=== PATIENT | female | born 1930 | race Caucasian/White ===

== ENCOUNTER 2016-12-13 11:13 | Emergency (ER) | payer OTHER ==
[~2016-12-13] VITALS: Ht 152.4 cm; Wt 61.0 kg
[~2016-12-13 11:13] MED LIST: ASCA500 PO; CALCTAB5 PO; CHOL100010 PO; DOCU-94 PO; ESCI1TAB6 PO; LPR25 PO; METF500T PO; MULT-884 PO; POLY335025 PO; SIMVASTATIN PO
[2016-12-13 11:24] VITALS: TEMP 37; Ht 152.4 cm; Wt 61.0 kg
--- NOTE | 2016-12-13 11:54 | EMERGENCY ROOM VISIT NOTE ---
History Report prepared by Valerieibyunior: James Castro Under the Supervision of: Dr. Baljit Amos D.O. First contact with patient: 11:27 Chief Complaint: FALL Stated Complaint: FALL History of Present Illness The patient is a 86 year old female who presents to the Emergency Room with complaints of persistent frontal, upper dental pain starting a few minutes ago. She tripped while walking into [employer]. The patient denies losing consciousness. She reports hitting her nose. She has an abrasion over the bridge of nose. As per friend, she also had a nose bleed. The patient denies neck pain, abdominal pain, hip pain, pain in lower extremities, or any other complaints. She denies any blood thinners. Source of History: patient, friend Onset: a few minutes ago Position: teeth (frontal, upper) Timing: other (persistent) Associated Symptoms: No LOC, No abdominal pain, No neck pain Review of Systems See HPI for pertinent positives & negatives. A total of 10 systems reviewed and were otherwise negative. Past Medical & Surgical Medical Problems: (1) Aortic stenosis (2) Depression (3) Diabetes mellitus type II, controlled (4) Dyslipidemia (5) HTN (hypertension) Surgical Problems: (1) H/O cataract removal with insertion of prosthetic lens Family History Not pertinent due to patient age Social History Smoking Status: Never Smoker Drug Use: none Marital Status: Housing Status: lives with family Occupation Status: retired Current/Historical Medications Scheduled Ascorbic Acid (Vitamin C), 500 MG PO DAILY Docusate Sodium (Colace), 1 CAP PO DAILY Ergocalciferol (Vitamin D 27083 Unit), 1 CAP PO WK Escitalopram Oxalate (Lexapro), 5 MG PO DAILY Metformin Hcl (Glucophage), 500 MG PO DAILY Metoprolol Tartrate (Lopressor), 25 MG PO BID Multiple Vitamin (Multi Vitamin Daily), 1 TAB PO DAILY [Simvastatin], 10 MG PO HS Scheduled PRN Polyethylene Glycol 3350 (Miralax), 17 GM PO DAILY PRN for Constipation Miscellaneous Medications Calcium Carbonate (Caltrate 600) Allergies Coded Allergies: No Known Allergies (Unverified , 12/13/16) Physical Exam Vital Signs Date Time Temp Pulse Resp B/P Pulse Ox O2 Delivery O2 Flow Rate FiO2 12/13/16 12:54 68 20 157/53 100 12/13/16 11:24 37.0 74 20 172/67 96 Room Air Physical Exam GENERAL: Patient is awake, alert, and in no acute distress. Patient is resting comfortably and showing no signs of anxiety EYES: The conjunctivae are clear. The pupils are round and reactive. EARS, NOSE, MOUTH AND THROAT: Mucous membranes are moist tongue is midline. Swelling over the bridge of the nose, clotted blood in both nares but no active bleeding. Hematoma noted in the inner upper lip. Tenderness over the maxilla with palpation. No dental trauma or malocclusion noted. NECK: The neck is nontender and supple. RESPIRATORY: Normal respiratory effort is noted there is no evidence of wheezing rhonchi or rales CARDIOVASCULAR: Regular rate and rhythm noted there no murmurs rubs or gallops normal S1 normal S2 GASTROINTESTINAL: The abdomen is soft. Bowel sounds are present in all quadrants. Abdomen is nontender BACK: No midline tenderness or or step-off noted range of motion in flexion extension as well as rotation no signs of muscle spasm noted MUSCULOSKELETAL/EXTREMITIES: There is no evidence of gross deformity full range of motion is noted in the hips and shoulders SKIN: There is no obvious evidence of any rash. There are no petechiae, pallor or cyanosis noted. Pedal edema bilaterally. NEUROLOGIC: Patient is at baseline according to friend, strength is symmetric, no facial droop appreciated, patellar reflexes are 2+ bilaterally Medical Decision & Procedures ER Provider Diagnostic Interpretation: CT results as stated below per my review and radiologist interpretation. CERVICAL SPINE CT CT DOSE: 1064.10 mGy.cm HISTORY: Trauma fall TECHNIQUE: Multiaxial CT images of the cervical spine were performed and reformatted in the sagittal and coronal plane without the use of contrast. COMPARISON: None. FINDINGS: No fractures. No subluxation. Prevertebral soft tissues and the C1-C2 interval are intact. No pneumothorax. Degenerative change throughout the entire cervical region. Minimal grade 1 anterolisthesis C2 on C3 thought to be secondary to a degenerative basis involving the posterior elements. IMPRESSION: Degenerative change. No acute bony abnormality. Electronically signed by: Bowen Guerra M.D. 12/13/2016 12:16 PM Dictated Date/Time: 12/13/2016 12:[address] OF THE HEAD WITHOUT CONTRAST CLINICAL HISTORY: Fall. COMPARISON STUDY: Head CT October 25, 2016. TECHNIQUE: Helical axial images of the head were obtained without IV contrast. Automated exposure control was utilized for the study. FINDINGS: No acute intracranial hemorrhage, midline shift or mass effect is present. Ventricular system is stable. There is a cavum of septum pellucidum. White matter hypodensities densities are unchanged and suggest small vessel disease. 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 There are no CT findings to suggest acute dural sinus thrombosis or acute territorial infarct. There is no calvarial fracture. IMPRESSION: 1. No acute intracranial findings. 2. No calvarial fracture. Electronically signed by: Sudeep Silverio M.D. 12/13/2016 12:27 PM Dictated Date/Time: 12/13/2016 12:[address] SCAN OF THE FACIAL BONES WITHOUT IV CONTRAST CLINICAL HISTORY: Fall. Facial injury. COMPARISON STUDY: CT of the brain performed concurrently on 12/13/2016. TECHNIQUE: High-resolution CT scan of the facial bones is performed. Images are reviewed in the axial, sagittal, and coronal planes. IV contrast was not administered for this examination. FINDINGS: The skeletal structures are osteopenic. There is no evidence of facial bone fracture. The bony orbits are intact and the orbital contents are within normal limits noting bilateral ocular lens implants.. The zygomatic arches, nasal bones, and pterygoid plates are preserved. The maxilla and mandible are intact. There are no layering blood products within the paranasal sinuses. Trace mucosal thickening is seen within the right sphenoid sinus and the right frontal sinus. The remaining paranasal sinuses mastoid air cells are clear. The visualized calvarium and upper cervical spine are maintained noting cervical spondylosis. 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 Partially imaged brain parenchyma is within normal limits noting age-related involutional change. There is dense atherosclerotic calcification of the cavernous carotid arteries. IMPRESSION: There is no evidence of facial bone fracture. Electronically signed by: Nilton Hart M.D. 12/13/2016 12:23 PM Dictated Date/Time: 12/13/2016 12:19 PM ED Course 1127: The patient was evaluated in room C02B. A complete history and physical examination were performed. 1235: Upon reevaluation, the patient is resting comfortably. I discussed the results and treatment plan with the patient. She verbalized agreement of the treatment plan. She was discharged home. Medical Decision Prior records/ancillary studies reviewed. Triage Nursing notes reviewed. Additional history obtained from friend. The patient's history was concerning for traumatic injury Differential diagnosis: Etiologies such as fracture, dislocation, intra-abdominal, pneumothorax, intrathoracic , intracranial, neurologic, as well as other traumatic pathologies were entertained. The patient is an 86-year-old female who presented to the emergency department after a fall. She presented with a friend who states that she had a fall where she tripped walking into a store. She had mostly facial injury. CT the head and neck as well as the facial bones did not show any acute bony abnormality or intracranial hemorrhage. The patient did have a significant contusion over the nose. The patient had epistaxis reported by the friend but this resolved spontaneously. She was encouraged to continue using Tylenol and Motrin for pain. She was also encouraged to continue using ice to the face. She had some dental pain but had no loose teeth on exam. She was encouraged to follow-up with her primary care physician this week for reevaluation but return to the emergency department immediately if symptoms change worsen or the need arises. Impression Primary Impression: Fall Additional Impression: Facial contusion Scribe Attestation The scribe's documentation has been prepared under my direction and personally reviewed by me in its entirety. I confirm that the note above accurately reflects all work, treatment, procedures, and medical decision making performed by me. Departure Information Dispostion Home / Self-Care Referrals Francesca Geiger D.O. (PCP) Forms HOME CARE DOCUMENTATION FORM, IMPORTANT VISIT INFORMATION Patient Instructions ED Nosebleed, My [facility] Additional Instructions Continue all medications as prescribed. Continue using Tylenol as directed for pain. Rest and avoid any strenuous activity. Follow-up with your family doctor soon as possible. Return to the emergency department immediately if symptoms change worsen or if the need arises. Problem Qualifiers
--- NOTE | 2016-12-13 12:18 | DIAGNOSTIC IMAGING REPORT ---
CERVICAL SPINE CT CT DOSE: 1064.10 mGy.cm HISTORY: Trauma fall TECHNIQUE: Multiaxial CT images of the cervical spine were performed and reformatted in the sagittal and coronal plane without the use of contrast. COMPARISON: None. FINDINGS: No fractures. No subluxation. Prevertebral soft tissues and the C1-C2 interval are intact. No pneumothorax. Degenerative change throughout the entire cervical region. Minimal grade 1 anterolisthesis C2 on C3 thought to be secondary to a degenerative basis involving the posterior elements. IMPRESSION: Degenerative change. No acute bony abnormality. Electronically signed by: Bowen Guerra M.D. 12/13/2016 12:16 PM Dictated Date/Time: 12/13/2016 12:14 PM
--- NOTE | 2016-12-13 12:24 | DIAGNOSTIC IMAGING REPORT ---
CT SCAN OF THE FACIAL BONES WITHOUT IV CONTRAST CLINICAL HISTORY: Fall. Facial injury. COMPARISON STUDY: CT of the brain performed concurrently on 12/13/2016. TECHNIQUE: High-resolution CT scan of the facial bones is performed. Images are reviewed in the axial, sagittal, and coronal planes. IV contrast was not administered for this examination. FINDINGS: The skeletal structures are osteopenic. There is no evidence of facial bone fracture. The bony orbits are intact and the orbital contents are within normal limits noting bilateral ocular lens implants.. The zygomatic arches, nasal bones, and pterygoid plates are preserved. The maxilla and mandible are intact. There are no layering blood products within the paranasal sinuses. Trace mucosal thickening is seen within the right sphenoid sinus and the right frontal sinus. The remaining paranasal sinuses mastoid air cells are clear. The visualized calvarium and upper cervical spine are maintained noting cervical spondylosis. 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 Partially imaged brain parenchyma is within normal limits noting age-related involutional change. There is dense atherosclerotic calcification of the cavernous carotid arteries. IMPRESSION: There is no evidence of facial bone fracture. Electronically signed by: Nilton Hart M.D. 12/13/2016 12:23 PM Dictated Date/Time: 12/13/2016 12:19 PM
--- NOTE | 2016-12-13 12:28 | DIAGNOSTIC IMAGING REPORT ---
CT OF THE HEAD WITHOUT CONTRAST CLINICAL HISTORY: Fall. COMPARISON STUDY: Head CT October 25, 2016. TECHNIQUE: Helical axial images of the head were obtained without IV contrast. Automated exposure control was utilized for the study. FINDINGS: No acute intracranial hemorrhage, midline shift or mass effect is present. Ventricular system is stable. There is a cavum of septum pellucidum. White matter hypodensities densities are unchanged and suggest small vessel disease. 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 There are no CT findings to suggest acute dural sinus thrombosis or acute territorial infarct. There is no calvarial fracture. IMPRESSION: 1. No acute intracranial findings. 2. No calvarial fracture. Electronically signed by: Sudeep Silverio M.D. 12/13/2016 12:27 PM Dictated Date/Time: 12/13/2016 12:25 PM
[2016-12-13] MEDS ORDERED: CALCTAB5 (12:38)
[2016-12-13] MEDS ORDERED: ERGO500037 PO (12:38)
[2016-12-13 12:54] VITALS: BP 157/53; PULSE 68; O2SAT 100
[2017-01-18] MEDS ORDERED: FURO20TA PO (09:46)
== END 2016-12-13 12:55 | disposition home or self-care (01) ==
LOC: EDBD 11:13 → C.EDC 11:14
DX: S00.83XA Contusion of other part of head, initial encounter (principal); W01.0XXA Fall on same level from slipping, tripping and stumbling without subsequent striking against object, initial encounter; Y92.512 Supermarket, store or market as the place of occurrence of the external cause; E11.9 Type 2 diabetes mellitus without complications; E78.5 Hyperlipidemia, unspecified; I10 Essential (primary) hypertension; I35.0 Nonrheumatic aortic (valve) stenosis; F32.9 Major depressive disorder, single episode, unspecified; Z79.899 Other long term (current) drug therapy

== ENCOUNTER 2017-01-13 09:18 | Inpatient (IN) | payer OTHER ==
[~2017-01-13] VITALS: Ht 154.9 cm; Wt 59.2 kg
[~2017-01-13 09:18] MED LIST changes: +CALCTAB5; -CALCTAB5 PO; -CHOL100010 PO; +ERGO500037 PO
--- NOTE | 2017-01-13 09:50 | EMERGENCY ROOM VISIT NOTE ---
History Report prepared by Sabrina: Alie Hawk Under the Supervision of: Dr. Blake Horner M.D. First contact with patient: 09:32 Chief Complaint: RESPIRATORY PROBLEMS Stated Complaint: SOB,SWOLLEN LEGS,WEAKNESS,DIZZINESS History of Present Illness The patient is an 86 year old female who presents to the Emergency Room with complaints of worsening weakness that began several weeks ago. The patient states that over the past two weeks she has intermittently had difficulty breathing. The patient's daughter notes that it has been worsening over the last two weeks. She states that typically the patient is able to care for herself completely, but notes that today the patient called her upstairs because she was feeling increasingly weak, dizzy and short of breath. The patient states that some days it takes her longer to walk up the stairs than others due to her shortness of breath. The patient's daughter notes that the patient's legs are increasingly edematous. The patient denies any pain, urinary symptoms, or difficulty with her bowel movements. She states that she has been taking her medications regularly, but her daughter is unsure if the patient has missed any medications. The patient reports a normal appetite and fluid intake. The patient denies being on any blood thinners. Source of History: patient, family (daughter) Onset: several weeks ago Position: other (global) Quality: other (weakness) Timing: worsening Associated Symptoms: + SOB Note: Associated Symptoms: increased edema to lower extremities, dizzy Review of Systems All systems have been listed, reviewed, and are negative other than those previously mentioned. Please see Additional Medical History Sheet. Past Medical & Surgical Medical Problems: (1) Aortic stenosis (2) CHF (congestive heart failure) (3) Depression (4) Diabetes mellitus type II, controlled (5) Dyslipidemia (6) HTN (hypertension) Surgical Problems: (1) H/O cataract removal with insertion of prosthetic lens Family History Cancer Diabetes mellitus Gallbladder disease Heart disease Hypertension Social History Smoking Status: Never Smoker Drug Use: none Marital Status: Housing Status: lives with family Occupation Status: retired Current/Historical Medications Scheduled Ascorbic Acid (Vitamin C), 500 MG PO QAM Cholecalciferol (Vitamin D), 2,000 UNIT PO QAM Escitalopram Oxalate (Lexapro), 5 MG PO QAM Metformin Hcl (Glucophage), 500 MG PO QAM Metoprolol Tartrate (Lopressor), 25 MG PO BID Multiple Vitamin (Multi Vitamin Daily), 1 TAB PO QAM Simvastatin (Zocor), 10 MG PO QAM Scheduled PRN Docusate Sodium (Colace), 100 MG PO DAILY PRN for Constipation Polyethylene Glycol 3350 (Miralax), 17 GM PO DAILY PRN for Constipation Allergies Coded Allergies: No Known Allergies (Unverified , 01/13/17) Physical Exam Vital Signs Date Time Temp Pulse Resp B/P Pulse Ox O2 Delivery O2 Flow Rate FiO2 01/13/17 11:37 69 168/68 96 01/13/17 09:46 60 01/13/17 09:32 96 Room Air 01/13/17 09:32 96 Room Air 01/13/17 09:21 36.4 64 20 122/57 95 Room Air Physical Exam GENERAL: Patient awake, alert, oriented x 3. Patient follows commands. Patient does not appear toxic. Patient is adequately hydrated and well- nourished. SKIN: No erythema, pallor, cyanosis or rash HEENT: Normal head, pupils equal, reactive to light and accommodation. Ears normal. Oral cavity and posterior pharynx appear normal. Neck: Positive neck vein distension. Without adenopathy. LUNGS: Clear to auscultation. No wheezes, no rales, no rhonchi. HEART: 5/6 harsh systolic murmur. No gallops. No rubs ABDOMEN: No masses, no rebound, no hepatomegaly or splenomegaly. EXTREMITIES: 2+ nonpitting pedal and pretibial edema. No signs of trauma. No calf or thigh tenderness. NEUROLOGIC: Cranial nerves II-XII within normal limits. No gross motor sensory function deficits. Medical Decision & Procedures ER Provider Diagnostic Interpretation: X ray results are stated below per my interpretation and the radiologist's interpretation. CHEST 2 VIEWS ROUTINE CLINICAL HISTORY: SOB COMPARISON STUDY: 10/25/2016 FINDINGS: The heart is enlarged. There is radiographic evidence of mild pulmonary vascular congestion. There are bilateral pleural effusions with bibasal airspace opacities.[ IMPRESSION: Cardiomegaly with radiographic evidence of mild pulmonary vascular congestion. Bilateral pleural effusions with associated bibasal airspace opacities. Electronically signed by: Aric Denton M.D. 01/13/2017 10:21 AM Dictated Date/Time: 01/13/2017 10:20 AM Laboratory Results 01/13/17 09:52 Red Blood Count 4.26, Mean Corpuscular Volume 89.0, Mean Corpuscular Hemoglobin 27.9, Mean Corpuscular Hemoglobin Concent 31.4, Mean Platelet Volume 12.0, Neutrophils (%) (Auto) 70.5, Lymphocytes (%) (Auto) 18.8, Monocytes (%) (Auto) 8.0, Eosinophils (%) (Auto) 2.1, Basophils (%) (Auto) 0.6, Neutrophils # (Auto) 4.41, Lymphocytes # (Auto) 1.18, Monocytes # (Auto) 0.50, Eosinophils # (Auto) 0.13, Basophils # (Auto) 0.04 01/13/17 09:52 Test 01/13/17 09:52 White Blood Count 6.26 K/uL (4.8-10.8) Red Blood Count 4.26 M/uL (4.2-5.4) Hemoglobin 11.9 g/dL (12.0-16.0) Hematocrit 37.9 % (37-47) Mean Corpuscular Volume 89.0 fL (80-100) Mean Corpuscular Hemoglobin 27.9 pg (25-34) Mean Corpuscular Hemoglobin Concent 31.4 g/dl (32-36) Platelet Count 174 K/uL (130-400) Mean Platelet Volume 12.0 fL (7.4-10.4) Neutrophils (%) (Auto) 70.5 % Lymphocytes (%) (Auto) 18.8 % Monocytes (%) (Auto) 8.0 % Eosinophils (%) (Auto) 2.1 % Basophils (%) (Auto) 0.6 % Neutrophils # (Auto) 4.41 K/uL (1.4-6.5) Lymphocytes # (Auto) 1.18 K/uL (1.2-3.4) Monocytes # (Auto) 0.50 K/uL (0.11-0.59) Eosinophils # (Auto) 0.13 K/uL (0-0.5) Basophils # (Auto) 0.04 K/uL (0-0.2) RDW Standard Deviation 54.4 fL (36.4-46.3) RDW Coefficient of Variation 16.6 % (11.5-14.5) Immature Granulocyte % (Auto) 0.0 % Immature Granulocyte # (Auto) 0.00 K/uL (0.00-0.02) Prothrombin Time 14.5 SECONDS (9.0-12.0) Prothromb Time International Ratio 1.3 (0.9-1.1) Activated Partial Thromboplast Time 26.8 SECONDS (21.0-31.0) Partial Thromboplastin Ratio 1.0 Anion Gap 12.0 mmol/L (3-11) Est Creatinine Clear Calc Drug Dose 36.0 ml/min Estimated GFR () 67.1 Estimated GFR (Non- 57.9 BUN/Creatinine Ratio 26.1 (10-20) Calcium Level 8.6 mg/dl (8.5-10.1) Total Bilirubin 1.2 mg/dl (0.2-1) Aspartate Amino Transf (AST/SGOT) 26 U/L (15-37) Alanine Aminotransferase (ALT/SGPT) 16 U/L (12-78) Alkaline Phosphatase 84 U/L (45-117) Troponin I 0.086 ng/ml (0-0.045) Total Protein 7.4 gm/dl (6.4-8.2) Albumin 3.3 gm/dl (3.4-5.0) Globulin 4.1 gm/dl (2.5-4.0) Albumin/Globulin Ratio 0.8 (0.9-2) Laboratory results as stated above per my review. Medications Administered Medications (Trade) Dose Ordered Sig/Osman Route Start Time Stop Time Status Last Admin Dose Admin Furosemide (Lasix Inj) 40 mg NOW STAT IV 01/13/17 11:02 01/13/17 11:03 DC 01/13/17 11:28 40 MG ECG Indication: SOB/dyspnea, weakness Rate (beats per minute): 61 Rhythm: sinus rhythm Findings: no acute ischemic change, no ectopy Change: Repeat EKG done at 1225: sinus rhythm, rate of 70 beats per minute, multiple PACs, no acute ischemic change. ED Course 932: Past medical records reviewed. The patient was evaluated in room A11B. A complete history and physical examination was performed. 1102: Ordered Lasix Inj 40 mg IV. 1105: I reevaluated the patient and she is resting comfortably. I discussed the exam findings with her and I discussed the treatment plan. She verbalized complete understanding and agreement. She will be evaluated for further treatment. 1145: I discussed the patients case with Alf Chirinos. She is going to evaluate the patient for further treatment. Medical Decision Nurses notes reviewed. Medical history sheet reviewed. Differential diagnosis includes but is not limited to: congestive heart failure, pneumonia, infection - viral, bacteria or UTI. 86-year-old female here with intermittent shortness of breath which is worse over the past few days. Multiple labs, EKG and imaging were obtained. Please see above. The patient has bilateral pleural effusions and congestive failure. Troponin is elevated. No EKG changes. The patient was given IV Lasix. The patient will require consultation, oxygen and reevaluation. The patient will most likely require additional diuretics. I discussed care with the patient, daughter and the hospitalist. Consults Time Called: 1104 Consulting Physician: Alf Chirinos Returned Call: 1145 I discussed the patients case with Alf Chirinos. She is going to evaluate the patient for further treatment. Impression Primary Impression: Congestive heart failure Additional Impressions: Bilateral pleural effusion Elevated troponin Anemia Scribe Attestation The scribe's documentation has been prepared under my direction and personally reviewed by me in its entirety. I confirm that the note above accurately reflects all work, treatment, procedures, and medical decision making performed by me. Departure Information Dispostion Being Evaluated By Hospitalist Referrals Francesca Geiger D.O. (PCP) Problem Qualifiers
[2017-01-13 10:15] LABS: BASO % 0.6 %; BASO ABS # 0.04 K/uL (0-0.2); COMPLETE YES; EOS % 2.1 %; HEMATOCRIT 37.9 % (37-47); LYMPH % 18.8 %; LYMPH ABS # 1.18 K/uL (1.2-3.4); MEAN CORPUSCULAR HEMOGLOBIN 27.9 pg (25-34); MEAN CORPUSCULAR HGB CONC 31.4 g/dl (32-36); NEUT % 70.5 %; PLATELET COUNT 174 K/uL (130-400); RED BLOOD COUNT 4.26 M/uL (4.2-5.4); WHITE BLOOD COUNT 6.26 K/uL (4.8-10.8)
[2017-01-13] MEDS ORDERED: SIMV10TA2 PO (10:15)
[2017-01-13] MEDS ORDERED: CHOL200010 PO (10:15)
--- NOTE | 2017-01-13 10:22 | DIAGNOSTIC IMAGING REPORT ---
CHEST 2 VIEWS ROUTINE CLINICAL HISTORY: SOB COMPARISON STUDY: 10/25/2016 FINDINGS: The heart is enlarged. There is radiographic evidence of mild pulmonary vascular congestion. There are bilateral pleural effusions with bibasal airspace opacities.[ IMPRESSION: Cardiomegaly with radiographic evidence of mild pulmonary vascular congestion. Bilateral pleural effusions with associated bibasal airspace opacities. Electronically signed by: Aric Denton M.D. 01/13/2017 10:21 AM Dictated Date/Time: 01/13/2017 10:20 AM
[2017-01-13 10:36] LABS: BUN/CREATININE RATIO 26.1 (10-20); CALCIUM 8.6 mg/dl (8.5-10.1); CREATININE 0.89 mg/dl (0.60-1.20); POTASSIUM 4.1 mmol/L (3.5-5.1)
[2017-01-13 10:45] LABS: ALB/GLOB RATIO 0.8 (0.9-2)
[2017-01-13] MEDS ORDERED: FUROSEMIDE 40 MG/4 ML VIAL IV STA (11:02)
[2017-01-13] MEDS ORDERED: NITROGLYCERIN 0.4 MG SL PER TAB CHARGE SL PRN (12:00)
[2017-01-13] MEDS ORDERED: ACETAMINOPHEN 325 MG TAB PO PRN (12:00)
[2017-01-13 12:33] LABS: INR 1.3 (0.9-1.1); PROTHROMBIN TIME (PATIENT) 14.5 SECONDS (9.0-12.0)
[2017-01-13] MEDS ORDERED: SERT1TAB72 PO (12:53)
[2017-01-13] MEDS ORDERED: LPR25 PO (12:53)
[2017-01-13] MEDS ORDERED: POLYETHYLENE (MIRALAX) 17 GM PACK PO PRN (13:00)
[2017-01-13] MEDS ORDERED: DOCUSATE SODIUM 100 MG CAP PO PRN (13:00)
[2017-01-13 13:33] LABS: URINE APPEARANCE CLEAR (CLEAR); URINE BILIRUBIN NEG (NEG); URINE COLOR YELLOW; URINE NITRITE NEG (NEG); URINE PH 5.5 (4.5-7.5); URINE SPECIFIC GRAVITY 1.003 (1.000-1.030); UROBILINOGEN NEG (NEG); ZZUR CULT IF INDIC CLEAN CATCH NO
[2017-01-13 13:35] LABS: MANUAL MICROSCOPIC REQUIRED? NO; REVIEW REQ? NO
[2017-01-13 14:02] VITALS: BP 128/59; PULSE 62; TEMP 36.9; O2SAT 95; Ht 154.9 cm; Wt 59.2 kg
--- NOTE | 2017-01-13 14:40 | History and Physical ---
History & Physical Date & Time of Service: Jan 13, 2017 at 13:59 Chief Complaint: Shortness of Breath, Leg Swelling Primary Care Physician: Francesca Geiger D.O. History of Present Illness 86 year old female who presents to the ER with shortness of breath and leg swelling. Patient reports her symptoms have been going on for the past two days. She notes shortness of breath with minimal exertion. This morning she noticed increased swelling to her BLLE, mostly around the ankles. Patient denies orthopnea. She does not weight herself on a daily basis. She denies chest pain, lightheadedness, dizziness, diaphoresis, and syncopal events. No cough or sputum production. No abdominal pain, nausea, vomiting, or diarrhea. She denies fever and chills. No urinary symptoms. In the ER, patient's CXR is consistent with CHF. She was given Lasix 40mg IV and has been diuresising well. Trop is mildly elevated at 0.086. EKG does not show any acute ST changes. During my exam, patient was walking back from the bathroom and was very short of breath. HR was noted to be in the 130s-140s, suspicious of atrial fibrillation, which tele strips confirmed. EKG was obtained and patient then converted to NSR with PACs. Oxygen was applied however patient was never hypoxic. Once patient rested in bed, her symptoms started to improve. Past Medical/Surgical History Medical Problems: (1) Aortic stenosis Status: Chronic (2) Aortic stenosis Permanent Comment: echo 07/2016 - EF 65-69%, severe aortic stenosis, moderate - severe mitral regurgitation, mild tricuspid regurgitation, mild pulmonary HTN Status: Chronic (3) Depression Status: Chronic (4) Diabetes mellitus type II, controlled Status: Chronic (5) Dyslipidemia Status: Chronic (6) HTN (hypertension) Status: Chronic Surgical Problems: (1) H/O cataract removal with insertion of prosthetic lens Status: Chronic (2) H/O inguinal hernia repair Permanent Comment: incarcerated Status: Chronic Family History non contributory due to patient's age Social History Smoking Status: Never Smoker Alcohol Use: none Immunizations History of Influenza Vaccine: Yes Influenza Vaccine Date: Oct 31, 2016 History of Pneumococcal: Yes Pneumococcal Date: Oct 31, 2016 Allergies Coded Allergies: No Known Allergies (Unverified , 01/13/17) Home Medications Scheduled Ascorbic Acid (Vitamin C), 500 MG PO QAM Cholecalciferol (Vitamin D), 2,000 UNIT PO QAM Metformin Hcl (Glucophage), 500 MG PO QAM Metoprolol Tartrate (Lopressor), 50 MG PO DAILY Multiple Vitamin (Multi Vitamin Daily), 1 TAB PO QAM Sertraline Hcl (Zoloft), 25 MG PO DAILY Simvastatin (Zocor), 10 MG PO QAM Scheduled PRN Docusate Sodium (Colace), 100 MG PO DAILY PRN for Constipation Polyethylene Glycol 3350 (Miralax), 17 GM PO DAILY PRN for Constipation Review of Systems 10 point review of systems was completed with the pertinent positives and negatives noted per the HPI Physical Exam Vital Signs Date Time Temp Pulse Resp B/P Pulse Ox O2 Delivery O2 Flow Rate FiO2 01/13/17 13:05 63 01/13/17 12:30 66 32 127/58 98 Nasal Cannula 2.0 01/13/17 12:16 151 01/13/17 11:37 69 168/68 96 01/13/17 09:46 60 01/13/17 09:32 96 Room Air 01/13/17 09:32 96 Room Air 01/13/17 09:21 36.4 64 20 122/57 95 Room Air General Appearance: + pertinent finding (initially, patient was resting in bed in no acute distress; however when walking back from the bathroom, patient had significant shortness of breath, once patient returned to bed, this improved) Head: normocephalic Eyes: normal inspection ENT: hearing grossly normal Neck: supple, no JVD Respiratory/Chest: + respiratory distress (while walking back from bathroom, improved with rest), + decreased breath sounds, + crackles (BL bases) Cardiovascular: regular rate, rhythm, + systolic murmur, + pertinent finding (+ 1-2 edema BLLE, more pronounced around the ankles) Abdomen/GI: normal bowel sounds, non tender, soft Extremities/Musculoskelatal: normal inspection, no calf tenderness Neurologic/Psych: no motor/sensory deficits, alert, normal mood/affect ( anxious at times), oriented x 3 Skin: normal color, warm/dry Diagnostics Laboratory Results Results Past 24 Hours Test 01/13/17 09:52 01/13/17 12:15 Range/Units White Blood Count 6.26 4.8-10.8 K/uL Red Blood Count 4.26 4.2-5.4 M/uL Hemoglobin 11.9 12.0-16.0 g/dL Hematocrit 37.9 37-47 % Mean Corpuscular Volume 89.0 80-100 fL Mean Corpuscular Hemoglobin 27.9 25-34 pg Mean Corpuscular Hemoglobin Concent 31.4 32-36 g/dl Platelet Count 174 130-400 K/uL Mean Platelet Volume 12.0 7.4-10.4 fL Neutrophils (%) (Auto) 70.5 % Lymphocytes (%) (Auto) 18.8 % Monocytes (%) (Auto) 8.0 % Eosinophils (%) (Auto) 2.1 % Basophils (%) (Auto) 0.6 % Neutrophils # (Auto) 4.41 1.4-6.5 K/uL Lymphocytes # (Auto) 1.18 1.2-3.4 K/uL Monocytes # (Auto) 0.50 0.11-0.59 K/uL Eosinophils # (Auto) 0.13 0-0.5 K/uL Basophils # (Auto) 0.04 0-0.2 K/uL RDW Standard Deviation 54.4 36.4-46.3 fL RDW Coefficient of Variation 16.6 11.5-14.5 % Immature Granulocyte % (Auto) 0.0 % Immature Granulocyte # (Auto) 0.00 0.00-0.02 K/uL Prothrombin Time 14.5 9.0-12.0 SECONDS Prothromb Time International Ratio 1.3 0.9-1.1 Activated Partial Thromboplast Time 26.8 21.0-31.0 SECONDS Partial Thromboplastin Ratio 1.0 Sodium Level 141 136-145 mmol/L Potassium Level 4.1 3.5-5.1 mmol/L Chloride Level 107 98-107 mmol/L Carbon Dioxide Level 22 21-32 mmol/L Anion Gap 12.0 3-11 mmol/L Blood Urea Nitrogen 23 7-18 mg/dl Creatinine 0.89 0.60-1.20 mg/dl Est Creatinine Clear Calc Drug Dose 36.0 ml/min Estimated GFR () 67.1 Estimated GFR (Non- 57.9 BUN/Creatinine Ratio 26.1 10-20 Random Glucose 148 70-99 mg/dl Calcium Level 8.6 8.5-10.1 mg/dl Total Bilirubin 1.2 0.2-1 mg/dl Aspartate Amino Transf (AST/SGOT) 26 15-37 U/L Alanine Aminotransferase (ALT/SGPT) 16 12-78 U/L Alkaline Phosphatase 84 45-117 U/L Troponin I 0.086 0-0.045 ng/ml Total Protein 7.4 6.4-8.2 gm/dl Albumin 3.3 3.4-5.0 gm/dl Globulin 4.1 2.5-4.0 gm/dl Albumin/Globulin Ratio 0.8 0.9-2 Urine Color YELLOW Urine Appearance CLEAR CLEAR Urine pH 5.5 4.5-7.5 Urine Specific [place] 1.003 1.000-1.030 Urine Protein NEG NEG Urine Glucose (UA) NEG NEG Urine Ketones NEG NEG Urine Occult Blood TRACE NEG Urine Nitrite NEG NEG Urine Bilirubin NEG NEG Urine Urobilinogen NEG NEG Urine Leukocyte Esterase TRACE NEG Urine WBC (Auto) 1-5 0-5 /hpf Urine RBC (Auto) 0-4 0-4 /hpf Urine Hyaline Casts (Auto) 0 0-5 /lpf Urine Epithelial Cells (Auto) 5-10 0-5 /lpf Urine Bacteria (Auto) NEG NEG Diagnostic Radiology CXR IMPRESSION: Cardiomegaly with radiographic evidence of mild pulmonary vascular congestion. Bilateral pleural effusions with associated bibasal airspace opacities. Impression Assessment and Plan ACUTE CHF DUE TO SEVERE , VALVULAR DISEASE - admit to tele - patient presenting with increasing shortness of breath and lower extremity edema for two days - diagnosed with severe 07/2016; had been asymptomatic - echo 07/2016 - EF 65-69%, severe , mod-sev MR, mild TR, mild pulmonary HTN - will update echo - no hypoxia however significant shortness of breath with minimal exertion - s/p Lasix 40mg IV in ED, will continue with 40mg IV daily; reassess patient tonight for possible further diuresis - I/Os, daily weights, low Na+ diet - initial trop 0.086, likely due to CHF; no reports of chest pain, EKG without acute ST changes; continue to cycle cardiac enzymes - case discussed with Dr. Allen, cardiology EPISODE OF RAPID ATRIAL FIBRILLATION, RESOLVED - developed after patient walked back from the bathroom - confirmed on tele strips - patient self converted to NSR with PACs - already on metoprolol, will continue - discussed with Dr. Allen, hold on Heparin for now HTN - BP controlled, continue metoprolol DM - hold metformin - hgb ac 4.9 10/2016 - would allow for more labile control due to patient's age - check BSG ACHS, add on SSI if needed DYSLIPIDEMIA - continue statin CKD STAGE III - baseline creat 0.9 - creat noted to be today 0.89 - continue to monitor, avoid nephrotoxic agents when able DVT PROPHYLAXIS - SQ Heparin CODE STATUS - Patient is a full code as per my discussion with her. DISPO - In my clinical judgment this beneficiary meets acute admission criteria, established by [facility], that includes being hospitalized through two midnights. ADDENDUM: I have seen and examined the patient and have discussed the case with the provider above. I agree with the assessment and plan as stated. This appears to be her first episode of CHF. She was recently diagnosed with severe in Jul, but at that time was asymptomatic. She denies any chest pain or syncope and does report a long history of palpations (for years, elenita when she lays down at night). I believe that her mildly elevated troponin is from cardiac strain in the setting of heart failure in addition to the atrial tachycardia captured on the monitor earlier. Will trend troponins, and cont telemetry monitoring. Cardiology has been contacted and agrees with current plan. Good response to Lasix 40 IV with approx 750cc out in Lasix naive patient. Will redose her another 20mg IV this evening, but already breathing is improved and there is no conversational dyspnea or use of accessory muscles of respiration. Of note, she does admit to using significant salt and was educated on the importance of restricting this moving forward. Myrna Marie, DO Hospitalist Level of Care Telemetry Resuscitation Status FULL RESUSCITATION VTE Prophylaxis VTE Risk Assessment Done? Y/N: Yes Risk Level: Moderate Given or contraindicated: Unfractionated heparin SQ
[2017-01-13 16:00] VITALS: O2SAT 95
[2017-01-13 16:10] VITALS: BP 154/71; PULSE 80; TEMP 36.9; O2SAT 95
[2017-01-13 19:49] VITALS: BP 149/64; PULSE 68; TEMP 37; O2SAT 95
[2017-01-13 20:00] VITALS: O2SAT 95
[2017-01-13] MEDS: HEPARIN SOD 5000 UNIT/0.5 ML CARP SQ SCH (20:18)
[2017-01-13] MEDS: PHENAZOPYRIDINE HCL 100 MG TAB PO SCH (20:18)
[2017-01-13] MEDS ORDERED: NURSING VERBAL MED ORDER ONE (21:00)
[2017-01-13] MEDS ORDERED: SIMVASTATIN 10 MG TAB PO SCH (21:00)
[2017-01-13] MEDS ORDERED: FUROSEMIDE INJ 20 MG in SYRINGE 0 ML IV ONE (21:00)
[2017-01-13 23:06] VITALS: BP 159/80; PULSE 76; TEMP 36.9; O2SAT 97
[2017-01-14] VITALS (13 sets, daily range): BP systolic 100–149; BP diastolic 49–69; PULSE 56–87; TEMP 36.6–36.9; O2SAT 90–97
[2017-01-14 07:29] LABS: HEMATOCRIT 35.2 % (37-47); MEAN CELL VOLUME 86.9 fL (80-100); MEAN CORPUSCULAR HEMOGLOBIN 28.1 pg (25-34); MEAN CORPUSCULAR HGB CONC 32.4 g/dl (32-36); MEAN PLATELET VOLUME 11.3 fL (7.4-10.4); PLATELET COUNT 133 K/uL (130-400); RED BLOOD COUNT 4.05 M/uL (4.2-5.4)
[2017-01-14 07:57] LABS: BUN/CREATININE RATIO 25.7 (10-20); CALCIUM 8.5 mg/dl (8.5-10.1); CREATININE 0.95 mg/dl (0.60-1.20); MAGNESIUM 1.8 mg/dl (1.8-2.4); POTASSIUM 3.8 mmol/L (3.5-5.1)
[2017-01-14] MEDS: SIMVASTATIN 10 MG TAB PO SCH (08:06)
[2017-01-14] MEDS: PHENAZOPYRIDINE HCL 100 MG TAB PO SCH ×3 (08:06→21:42)
[2017-01-14] MEDS: MULTIVITAMIN TAB PO SCH (08:07)
[2017-01-14] MEDS: CHOLECALCIFEROL 1000 INTER.UNIT TAB PO SCH (08:07)
[2017-01-14] MEDS: METOPROLOL TARTRATE 50 MG TAB PO SCH (08:08)
[2017-01-14] MEDS: ASCORBIC ACID 500 MG TAB PO SCH (08:09)
[2017-01-14] MEDS: SERTRALINE HCL 50 MG TAB PO SCH (08:09)
[2017-01-14] MEDS: HEPARIN SOD 5000 UNIT/0.5 ML CARP SQ SCH ×2 (08:11→21:43)
[2017-01-14] MEDS ORDERED: FUROSEMIDE INJ 40 MG in SYRINGE 0 ML IV SCH ×2 (09:00→17:00)
--- NOTE | 2017-01-14 09:36 | Progress Note ---
Subjective Date of Service: Jan 14, 2017. Subjective Pt evaluation today including: conversation w/ patient, physical exam, lab review, review of studies, review of inpatient medication list Saw/examined the patient in room 289 Presented to the ER with shortness of breath and b/l LE swelling today, swelling has improved as has her breathing with rest she states that at home she lives with her daughter and does walk up and down steps - dyspnea on occasion with this, but not all the time currently has oxygen on anxious/eager to get home Problem List Medical Problems: (1) Abdominal wound dehiscence Status: Acute (2) Aortic stenosis Status: Chronic (3) Constipation Status: Acute (4) Hernia Status: Acute Review of Systems Constitutional: No chills, No fever, No weakness Respiratory: + dyspnea on exertion, + shortness of breath, No cough, No dyspnea at rest, No hemoptysis, No sputum, No wheezing Cardiac: + edema, No chest pain, No orthopnea, No palpitations Abdomen: No diarrhea, No nausea, No pain, No vomiting Heme: No abnormal bleeding/bruising Medications Current Inpatient Medications Medications (Trade) Dose Ordered Sig/Osman Route Start Time Stop Time Status Last Admin Dose Admin Heparin Sodium (Porcine) (Heparin Sq 5000 Unit/0.5ml) 5,000 unit Q12 SQ 01/13/17 21:00 02/12/17 20:59 01/14/17 08:11 5,000 UNIT Acetaminophen (Tylenol Tab) 650 mg Q4H PRN PO 01/13/17 12:00 02/12/17 11:59 Ondansetron HCl (Zofran Inj) 4 mg Q6H PRN IV 01/13/17 12:00 02/12/17 11:59 Nitroglycerin (Nitrostat Tab) 0.4 mg UD PRN SL 01/13/17 12:00 02/12/17 11:59 Ascorbic Acid (Vitamin C Tab) 500 mg QAM PO 01/14/17 09:00 02/13/17 08:59 01/14/17 08:09 500 MG Docusate Sodium (coLACE CAP) 100 mg DAILY PRN PO 01/13/17 13:00 02/12/17 12:59 Metoprolol Tartrate (Lopressor Tab) 50 mg DAILY PO 01/14/17 09:00 02/13/17 08:59 01/14/17 08:08 50 MG Multivitamins (Multivitamin Tab) 1 tab QAM PO 01/14/17 09:00 02/13/17 08:59 01/14/17 08:07 1 TAB Polyethylene (Miralax Powder Packet) 17 gm DAILY PRN PO 01/13/17 13:00 02/12/17 12:59 Sertraline HCl (Zoloft Tab) 25 mg DAILY PO 01/14/17 09:00 02/13/17 08:59 01/14/17 08:09 25 MG Cholecalciferol 2000 inter.unit 2,000 inter.unit QAM PO 01/14/17 09:00 02/13/17 08:59 01/14/17 08:07 2,000 INTER.UNIT Furosemide/Syringe (Lasix Inj/ Syringe) 4 ml @ 4 mls/min DAILY IV 01/14/17 09:00 02/13/17 08:59 01/14/17 08:06 4 MLS/MIN Phenazopyridine HCl (Pyridium Tab) 100 mg TID PO 01/13/17 21:00 01/15/17 20:59 01/14/17 08:06 100 MG Simvastatin (Zocor Tab) 10 mg QAM PO 01/14/17 09:00 02/13/17 08:59 01/14/17 08:06 10 MG Objective Vital Signs Date Time Temp Pulse Resp B/P Pulse Ox O2 Delivery O2 Flow Rate FiO2 01/14/17 07:38 36.9 87 18 149/69 94 Room Air 01/14/17 05:32 36.9 72 18 148/60 96 2.0 01/14/17 04:16 95 Nasal Cannula 2.0 01/14/17 00:15 95 Nasal Cannula 2.0 01/13/17 23:06 36.9 76 20 159/80 97 Nasal Cannula 2.0 01/13/17 20:00 95 Nasal Cannula 2.0 01/13/17 19:49 37.0 68 20 149/64 95 2.0 01/13/17 16:10 36.9 80 16 154/71 95 Nasal Cannula 2.0 01/13/17 16:00 95 Nasal Cannula 2.0 01/13/17 14:02 36.9 62 28 128/59 95 Nasal Cannula 2.0 01/13/17 13:05 63 01/13/17 12:30 66 32 127/58 98 Nasal Cannula 2.0 01/13/17 12:16 151 01/13/17 11:37 69 168/68 96 01/13/17 09:46 60 01/13/17 09:32 96 Room Air 01/13/17 09:32 96 Room Air Physical Exam General Appearance: no apparent distress ENT: hearing grossly normal Respiratory/Chest: chest non-tender, lungs clear, normal breath sounds, no respiratory distress, no accessory muscle use Cardiovascular: regular rate, rhythm, no gallop, + systolic murmur (harsh 3/6 systolic murmur, best heard at the right 2nd intercostal space) Abdomen: normal bowel sounds, non tender, soft Extremities: + pertinent finding (+1 pitting edema of b/l LE, below the knees - currently has compression stockings on) Neurologic/Psychiatric: no motor/sensory deficits, alert, normal mood/affect Skin: normal color Lymphatic: no adenopathy Laboratory Results Last 24 Hours Test 01/13/17 09:52 01/13/17 12:15 01/13/17 15:00 01/13/17 16:01 White Blood Count 6.26 K/uL Red Blood Count 4.26 M/uL Hemoglobin 11.9 g/dL Hematocrit 37.9 % Mean Corpuscular Volume 89.0 fL Mean Corpuscular Hemoglobin 27.9 pg Mean Corpuscular Hemoglobin Concent 31.4 g/dl Platelet Count 174 K/uL Mean Platelet Volume 12.0 fL Neutrophils (%) (Auto) 70.5 % Lymphocytes (%) (Auto) 18.8 % Monocytes (%) (Auto) 8.0 % Eosinophils (%) (Auto) 2.1 % Basophils (%) (Auto) 0.6 % Neutrophils # (Auto) 4.41 K/uL Lymphocytes # (Auto) 1.18 K/uL Monocytes # (Auto) 0.50 K/uL Eosinophils # (Auto) 0.13 K/uL Basophils # (Auto) 0.04 K/uL RDW Standard Deviation 54.4 fL RDW Coefficient of Variation 16.6 % Immature Granulocyte % (Auto) 0.0 % Immature Granulocyte # (Auto) 0.00 K/uL Prothrombin Time 14.5 SECONDS Prothromb Time International Ratio 1.3 Activated Partial Thromboplast Time 26.8 SECONDS Partial Thromboplastin Ratio 1.0 Sodium Level 141 mmol/L Potassium Level 4.1 mmol/L Chloride Level 107 mmol/L Carbon Dioxide Level 22 mmol/L Anion Gap 12.0 mmol/L Blood Urea Nitrogen 23 mg/dl Creatinine 0.89 mg/dl Est Creatinine Clear Calc Drug Dose 36.0 ml/min Estimated GFR () 67.1 Estimated GFR (Non- 57.9 BUN/Creatinine Ratio 26.1 Random Glucose 148 mg/dl Calcium Level 8.6 mg/dl Total Bilirubin 1.2 mg/dl Aspartate Amino Transf (AST/SGOT) 26 U/L Alanine Aminotransferase (ALT/SGPT) 16 U/L Alkaline Phosphatase 84 U/L Troponin I 0.086 ng/ml 0.097 ng/ml Total Protein 7.4 gm/dl Albumin 3.3 gm/dl Globulin 4.1 gm/dl Albumin/Globulin Ratio 0.8 Urine Color YELLOW Urine Appearance CLEAR Urine pH 5.5 Urine Specific [place] 1.003 Urine Protein NEG Urine Glucose (UA) NEG Urine Ketones NEG Urine Occult Blood TRACE Urine Nitrite NEG Urine Bilirubin NEG Urine Urobilinogen NEG Urine Leukocyte Esterase TRACE Urine WBC (Auto) 1-5 /hpf Urine RBC (Auto) 0-4 /hpf Urine Hyaline Casts (Auto) 0 /lpf Urine Epithelial Cells (Auto) 5-10 /lpf Urine Bacteria (Auto) NEG Creatine Kinase MB Ratio Creatine Kinase MB 3.6 ng/ml Test 01/13/17 16:37 01/13/17 20:07 01/13/17 21:00 01/13/17 21:34 Bedside Glucose 94 mg/dl 91 mg/dl Creatine Kinase MB Ratio Creatine Kinase MB 2.9 ng/ml Troponin I 0.106 ng/ml Test 01/14/17 07:15 01/14/17 07:32 White Blood Count 5.80 K/uL Red Blood Count 4.05 M/uL Hemoglobin 11.4 g/dL Hematocrit 35.2 % Mean Corpuscular Volume 86.9 fL Mean Corpuscular Hemoglobin 28.1 pg Mean Corpuscular Hemoglobin Concent 32.4 g/dl RDW Standard Deviation 52.2 fL RDW Coefficient of Variation 16.4 % Platelet Count 133 K/uL Mean Platelet Volume 11.3 fL Sodium Level 140 mmol/L Potassium Level 3.8 mmol/L Chloride Level 104 mmol/L Carbon Dioxide Level 25 mmol/L Anion Gap 11.0 mmol/L Blood Urea Nitrogen 24 mg/dl Creatinine 0.95 mg/dl Est Creatinine Clear Calc Drug Dose 33.8 ml/min Estimated GFR () 62.0 Estimated GFR (Non- 53.5 BUN/Creatinine Ratio 25.7 Random Glucose 92 mg/dl Calcium Level 8.5 mg/dl Magnesium Level 1.8 mg/dl Troponin I 0.086 ng/ml Bedside Glucose 87 mg/dl Assessment and Plan This is an 86 year old female with PMH of severe aortic stenosis, HTN, HLD, DM2 presented with acute shortness of breath, dyspnea on exertion, and lower extremity edema Acute Heart Failure with Preserved Ejection Fraction in the setting of Severe Valvular Disease presented with dyspnea with exertion and edema in both legs received IV Lasix on admission symptoms improving today last echo showed a normal EF with severe , severe MR updated echo pending I's/O's, daily weights, low Na+ diet continue low dose diuretic for now Episode of A. Fib currently on b-cassie was NSR during exam hold off on anticoagulation cardiology input would be appreciated HTN BP controlled continue home medications DM2 Last a1c = 4.9% stop all medications check BSGs and adjust accordingly HLD continue statin CKD stage 3 stable, monitor with diuretic use DVT ppx subq heparin FULL CODE
--- NOTE | 2017-01-14 10:36 | ECHOCARDIOGRAM REPORT ---
*NOTICE TO RECEIVING [employer] This information is strictly Confidential and protected under [place] law. [place] law prohibits you from making any further disclosure of this information unless further disclosure is expressly permitted by the written consent of the person to whom it pertains or is authorized by law. A general authorization for the release of medical or other information is not sufficient for this purpose. Hospital accepts no responsibility if the information is made available to any other person, INCLUDING THE PATIENT. Interpretation Summary * Name: REJI CONNER Study Date: 01/13/2017 03:43 PM BP: 127/58 mmHg * Patient Location: [facility] HR: 63 * : 1930 (M/d/yyyy) Gender: Female Height: 60 in * Age: 86 yrs Ethnicity: [place] Weight: 137 lb * Ordering Physician: Marianela Bartlett * Performed By: Christina Tsang RDCS * * Reason For Study: Congestive heart failure * BSA: 1.6 m2 * -- Conclusions -- * Normal LV chamber size with severe concentric LVH. * Normal LV systolic function, EF 55-60%. * No segmental left ventricular wall motion abnormalities are noted. * The right ventricular cavity size is normal (basal dimension <4.2 cm in right ventricular apical 4-chamber view). Reduced RV systolic function by TAPSE. * Heavily calcified aortic valve with severely reduced systolic excursion. * Moderate aortic regurgitation. * Severe valvular aortic stenosis. * There is severe mitral annular calcification. * There is moderate to severe mitral regurgitation. * There is no mitral valve stenosis. * There is moderate to severe tricuspid regurgitation. * Severe biatrial enlargement. * Large left pleural effusion. Procedure Details * A complete two-dimensional transthoracic echocardiogram was performed (2D, M-mode, Doppler and color flow Doppler). Left Ventricle * The left ventricle is normal in size. * There is mild concentric left ventricular hypertrophy. * Ejection Fraction = 55-60%. * Left ventricular systolic function is normal. * No segmental left ventricular wall motion abnormalities are noted. * The left ventricular wall motion is normal. Right Ventricle * The right ventricular cavity size is normal (basal dimension <4.2 cm in right ventricular apical 4-chamber view). * The right ventricular systolic function is reduced as assessed by tricuspid annular plane systolic excursion (TAPSE) (TAPSE <1.6 cm). Atria * The left atrium is severely dilated. * The right atrium is severely dilated. * No ASD detected; PFO is not assessed. Mitral Valve * There is severe mitral annular calcification. * There is no mitral valve stenosis. * There is moderate to severe mitral regurgitation. Tricuspid Valve * The tricuspid valve anatomy is normal. * There is no tricuspid stenosis. * There is moderate to severe tricuspid regurgitation. Aortic Valve * Heavily calcified aortic valve with severely reduced systolic excursion. * Severe valvular aortic stenosis. * Moderate aortic regurgitation. Pulmonic Valve * The pulmonary valve is not well seen, but the Doppler examination is normal without significant regurgitation or stenosis. Great Vessels * The aortic root and proximal ascending aorta are normal sized. Pericardium/Pleural * There is no pericardial effusion. * Large left pleural effusion. Left Ventricular Diastolic Function * Diastolic dysfunction, Grade II, consistent with congestive heart failure. MMode 2D Measurements and Calculations IVSd 1.4 cm LVIDd 4.5 cm LVIDs 3.2 cm LVPWd 1.3 cm IVS/LVPW 1.1 FS 28.9 % EDV(Teich) 90.7 ml ESV(Teich) 40.1 ml EF(Teich) 55.8 % EDV(cubed) 88.9 ml ESV(cubed) 31.9 ml EF(cubed) 64.1 % LV mass(C)d 241.0 grams LV mass(C)dI 151.6 grams/m\S\2 SV(Teich) 50.6 ml SI(Teich) 31.8 ml/m\S\2 SV(cubed) 57.0 ml SI(cubed) 35.9 ml/m\S\2 Ao root diam 2.8 cm Ao root area 6.1 cm\S\2 LA dimension 3.2 cm asc Aorta Diam 3.2 cm LA/Ao 1.2 LVOT diam 1.7 cm LVOT area 2.2 cm\S\2 LVAd ap4 22.7 cm\S\2 LVLd ap4 7.3 cm EDV(MOD-sp4) 59.0 ml EDV(sp4-el) 59.7 ml LVAs ap4 13.6 cm\S\2 LVLs ap4 6.2 cm ESV(MOD-sp4) 25.9 ml ESV(sp4-el) 25.3 ml EF(MOD-sp4) 56.1 % EF(sp4-el) 57.6 % LVAd ap2 24.2 cm\S\2 LVLd ap2 7.8 cm EDV(MOD-sp2) 66.8 ml EDV(sp2-el) 64.2 ml LVAs ap2 15.4 cm\S\2 LVLs ap2 6.6 cm ESV(MOD-sp2) 31.9 ml ESV(sp2-el) 30.3 ml EF(MOD-sp2) 52.3 % EF(sp2-el) 52.7 % LVLd %diff 5.6 % EDV(MOD-bp) 64.5 ml LVLs %diff 6.5 % ESV(MOD-bp) 29.4 ml EF(MOD-bp) 54.5 % SV(MOD-sp4) 33.1 ml SI(MOD-sp4) 20.8 ml/m\S\2 SV(MOD-sp2) 34.9 ml SI(MOD-sp2) 22.0 ml/m\S\2 SV(MOD-bp) 35.2 ml SI(MOD-bp) 22.1 ml/m\S\2 SV(sp4-el) 34.4 ml SI(sp4-el) 21.6 ml/m\S\2 SV(sp2-el) 33.8 ml SI(sp2-el) 21.3 ml/m\S\2 Doppler Measurements and Calculations MV E max moraima 154.8 cm/sec MV A max moraima 78.2 cm/sec MV E/A 2.0 MV dec time 0.20 sec Ao V2 max 494.8 cm/sec Ao max PG 98.5 mmHg Ao max PG (full) 96.2 mmHg Ao V2 mean 407.2 cm/sec Ao mean PG 73.6 mmHg Ao V2 VTI 128.2 cm RICK(V,A) 0.33 cm\S\2 RICK(V,D) 0.33 cm\S\2 AI max moraima 486.6 cm/sec AI max PG 94.7 mmHg AI dec slope 421.2 cm/sec\S\2 AI P1/2t 338.4 msec LV V1 max PG 2.2 mmHg LV V1 max 74.5 cm/sec MR max moraima 731.2 cm/sec MR max PG 213.9 mmHg MR mean moraima 532.8 cm/sec MR mean PG 132.0 mmHg MR VTI 236.8 cm SV(Ao) 786.9 ml SI(Ao) 495.1 ml/m\S\2 PA V2 max 84.1 cm/sec PA max PG 2.8 mmHg PA acc slope 621.2 cm/sec\S\2 PA acc time 0.11 sec PI max moraima 213.5 cm/sec PI max PG 18.2 mmHg PI dec slope 196.4 cm/sec\S\2 PI P1/2t 318.4 msec TR max moraima 306.2 cm/sec PA pr(Accel) 29.0 mmHg
[2017-01-14] MEDS: AMIODARONE 200 MG TAB PO SCH ×2 (13:29→21:42)
--- NOTE | 2017-01-14 15:13 | CARDIOLOGY CONSULTATION ---
DATE OF CONSULTATION: 01/14/2017 CONSULTATION REQUESTED BY: Dr. Dejesus. REASON FOR CONSULTATION: Heart failure and paroxysmal atrial fibrillation. HISTORY OF PRESENT ILLNESS: Ms. Soto is a very pleasant 86-year-old woman who previously was seen by Dr. Perez of our cardiology practice. She presented to [facility] Emergency Department on 01/13/2017 with a report of shortness of breath and lower extremity edema. Currently, the patient states that she thinks she feels fine and only came in because her daughter noticed these symptoms and became concerned. According to the patient, her daughter notes that she was more short of breath over the last several days and that her lower extremities began to swell. This slowly worsened until the when she came into the Emergency Department. In the Emergency Department, she was found to be significantly volume overloaded along with bilateral pleural effusions on chest x-ray and she was admitted to telemetry. In the Emergency Department when she ambulated the patient appeared to go into atrial fibrillation with rapid ventricular response into the 130s; however, this was transient and she quickly converted back to sinus rhythm. The patient denies experiencing any symptoms with this event, specifically denied any associated shortness of breath or palpitations. PAST SURGICAL HISTORY: Cataract surgery. MEDICAL ILLNESSES: 1. Severe aortic stenosis. 2. Diabetes. 3. Dyslipidemia. 4. Depression. FAMILY HISTORY: Noncontributory. SOCIAL HISTORY: Denies any alcohol, tobacco or recreational drug use. She lives at home with her daughter. REVIEW OF SYSTEMS: As per HPI, all other review of systems reviewed and negative at this time. ALLERGIES: No known drug allergies. MEDICATIONS AN OUTPATIENT: 1. Lopressor 25 mg b.i.d. 2. Simvastatin 10 mg daily. 3. Metformin daily. 4. Zoloft daily. PHYSICAL EXAMINATION: VITALS: Temperature 36.8, pulse 56, respiratory rate 12, blood pressure 100/49. GENERAL: Awake, alert, oriented x3 upright in bed, eating lunch, in no acute distress. HEENT: Normocephalic, atraumatic. Pupils equal, round, and reactive to light and accommodation. Extraocular muscles intact. Anicteric sclerae. Moist mucous membranes. NECK: No JVD, no bruit. CARDIOVASCULAR: Regular. Positive S4. Normal S1, S2 was not present. Soft 2/6 mid to late systolic ejection murmur greatest at the right sternal border second intercostal space with radiation to bilateral carotids. A second holosystolic ejection murmur at the left midclavicular line, fifth intercostal space with radiation to the left axilla. PULMONARY: Poor air movement in the bilateral bases with crackles, no rhonchi or wheezing. ABDOMEN: Bowel sounds x4, soft. No rebound, guarding, tenderness. No organomegaly. EXTREMITIES: +1 bilateral lower extremity pitting edema. No clubbing or cyanosis. +2 pedal pulses bilaterally. SKIN: Warm and dry. TEST RESULTS: Chest x-ray was read as cardiomegaly with radiographic evidence of mild pulmonary vascular congestion, bilateral pleural effusions with associated bibasilar airspace opacities. A 2-D echocardiogram was read as normal LV chamber size with severe concentric LVH, normal LV systolic function, EF 55%-60%, no segmental left ventricular wall motion abnormalities were noted. Reduced RV systolic function by TAPSE, heavily calcified aortic valve with severely reduced systolic excursion, moderate aortic regurgitation, severe stenosis, severe mitral annular calcification with moderate to severe mitral regurgitation, no mitral stenosis; moderate to severe tricuspid regurgitation, severe biatrial enlargement, large left pleural effusion. IMPRESSION: 1. Acute decompensated diastolic heart failure secondary to valvular disease. 2. Paroxysmal atrial fibrillation. 3. Severe aortic stenosis. 4. Moderate to severe mitral regurgitation. 5. Moderate to severe tricuspid regurgitation. RECOMMENDATIONS: It was my pleasure to see Mrs. Soto in consultation today. The pathophysiology of her volume overload was discussed with the patient at great lengths. She insists that she really does not feel bad at all and thinks that she feels fine and wishes to go home. I have then explained the pathophysiology of atrial fibrillation and the possible contributory nature to her acute decompensation. So at this time we will start her on amiodarone 400 mg 3 times a day in order to maintain normal sinus rhythm. Given the fleeting nature with no evidence of prolonged episodes, no anticoagulation will be started at this time; however, she will be started on aspirin 81 mg daily. I will also increase her diuretics to Lasix 40 mg IV b.i.d. Her electrolytes will be followed and repleted as necessary and further recommendations to follow.
[2017-01-15] VITALS (10 sets, daily range): BP systolic 103–151; BP diastolic 54–70; PULSE 51–67; TEMP 36.5–36.8; O2SAT 91–97
[2017-01-15 06:49] LABS: BUN/CREATININE RATIO 27.1 (10-20); CALCIUM 8.6 mg/dl (8.5-10.1); CREATININE 1.3 mg/dl (0.60-1.20); POTASSIUM 3.7 mmol/L (3.5-5.1)
--- NOTE | 2017-01-15 08:01 | Clinical Documentation Query ---
CUATE Veliz : CLINICAL DOCUMENTATION QUERY Patient is an 86 year old female admitted for evaluation and treatment of acute diastolic CHF secondary to severe , MR, and TR. Admission BUN and creatinine were 23 mg/dl and 0.89 mg/dl. Today, (01/15), values are 35 mg/dl and 1.30 mg/dl. She is being monitored with serial chemistries and at risk due to IV Lasix administration, age, acute diastolic CHF. In your clinical opinion is this patient being managed for: ( ) Acute kidney failure ( ) Other explanation of clinical findings (Please Explain) ( ) Unable to determine (Please Define) ( ) Need to Discuss ( ) Not Agree The medical record reflects the following clinical findings, treatment, and risk factors. PATIENT IS BEING FOLLOWED BY DR BUNCH , PLEASE FORWARD THIS QUERY TO HIM THANKS CUATE Clinical Indicators: As above Treatment:monitored with serial chemistries Risk Factors:IV Lasix administration, age, acute diastolic CHF Please clarify and document your clinical opinion in the progress notes and discharge summary. Terms such as "probable", "suspected", "likely", "questionable", "possible", or "still to be ruled out" are acceptable. IF IN AGREEMENT, YOU MUST DOCUMENT ABOVE DIAGNOSTIC STATEMENT IN DAILY PROGRESS NOTES AND DISCHARGE SUMMARY. This document is not part of the patient's record. Thank You, Luther Walden, VANESSA [phone]
[2017-01-15] MEDS: MULTIVITAMIN TAB PO SCH (08:38)
[2017-01-15] MEDS: PHENAZOPYRIDINE HCL 100 MG TAB PO SCH ×2 (08:38→14:05)
[2017-01-15] MEDS: METOPROLOL TARTRATE 50 MG TAB PO SCH (08:38)
[2017-01-15] MEDS: SERTRALINE HCL 50 MG TAB PO SCH (08:39)
[2017-01-15] MEDS: AMIODARONE 200 MG TAB PO SCH (08:39)
[2017-01-15] MEDS: SIMVASTATIN 10 MG TAB PO SCH (08:39)
[2017-01-15] MEDS: ASCORBIC ACID 500 MG TAB PO SCH (08:40)
[2017-01-15] MEDS: CHOLECALCIFEROL 1000 INTER.UNIT TAB PO SCH (08:40)
[2017-01-15] MEDS: HEPARIN SOD 5000 UNIT/0.5 ML CARP SQ SCH ×2 (08:43→21:05)
--- NOTE | 2017-01-15 10:27 | PROGRESS NOTE ---
DATE: 01/15/2017 FOLLOWUP VISIT SUBJECTIVE: The patient is an 86-year-old female who I usually follow in my clinic. She has a history of severe critical aortic stenosis and in the past, has elected for conservative management. I do not believe that this is a bad choice in this elderly patient. She has done quite well. Recently, however, she has been experiencing some lower extremity edema and shortness of breath and was brought to the Emergency Department by her family. After admission, she has given intravenous diuresis and her symptoms have markedly improved along with her lower extremity edema. In questioning her this morning, she feels well and she wants to go home. OBJECTIVE: VITAL SIGNS: Blood pressure is 112/60. Pulse is regular at 65. She is in a sinus rhythm. She is afebrile. Her weight has trended down from 60.7 kilograms to 58.6 kilograms. This is a significant weight loss in this very small woman. GENERAL: She is alert and oriented, in no acute distress. HEENT: She is normocephalic. Pupils are equal and reactive to light. Extraocular muscles are intact bilaterally. NECK: The neck veins are flat. Carotids have good upstrokes bilaterally. RESPIRATORY: Breath sounds are equal. There are diminished breath sounds at the bases bilaterally. No rales or rhonchi. CARDIOVASCULAR: Heart has a regular rhythm. There is a harsh systolic murmur along the left sternal border. No S3 or S4. GASTROINTESTINAL: Abdomen is soft and nontender without organomegaly. EXTREMITIES: Free of edema, digit clubbing, or cyanosis. NEUROLOGIC: Grossly intact. SKIN: Warm to touch. LYMPH NODES: Negative to palpation. LABORATORY DATA: Creatinine is 1.3 today and potassium is 3.7. IMPRESSION: 1. Congestive heart failure due to valvular heart disease. 2. Severe aortic stenosis. RECOMMENDATIONS: The patient's diuretics have been discontinued this morning and I think that is appropriate. The patient is bradycardic today due to beta cassie and start of amiodarone. Both of these meds have been held. Reviewing her home medication, she was not on a diuretic. I definitely would send her home on at least 20 mg of Lasix daily. Continue telemetry and restart amiodarone if heart rate stabilizes. [facility]
[2017-01-15] MEDS ORDERED: NURSING VERBAL MED ORDER ONE (10:30)
--- NOTE | 2017-01-15 12:11 | Clinical Documentation Query ---
KIMBER Horn : CLINICAL DOCUMENTATION QUERY Patient is an 86 year old female admitted for evaluation and treatment of acute diastolic CHF secondary to severe , MR, and TR. Admission BUN and creatinine were 23 mg/dl and 0.89 mg/dl. Today, (01/15), values are 35 mg/dl and 1.30 mg/dl. She is being monitored with serial chemistries and at risk due to IV Lasix administration, age, acute diastolic CHF. In your clinical opinion is this patient being managed for: ( ) Acute kidney failure ( ) Other explanation of clinical findings (Please Explain) ( ) Unable to determine (Please Define) ( ) Need to Discuss ( ) Not Agree The medical record reflects the following clinical findings, treatment, and risk factors. Clinical Indicators: As above Treatment:monitored with serial chemistries Risk Factors:IV Lasix administration, age, acute diastolic CHF Please clarify and document your clinical opinion in the progress notes and discharge summary. Terms such as "probable", "suspected", "likely", "questionable", "possible", or "still to be ruled out" are acceptable. IF IN AGREEMENT, YOU MUST DOCUMENT ABOVE DIAGNOSTIC STATEMENT IN DAILY PROGRESS NOTES AND DISCHARGE SUMMARY. This document is not part of the patient's record. Thank You, Luther Walden, VANESSA [phone]
--- NOTE | 2017-01-15 12:20 | Progress Note ---
Subjective Date of Service: Jan 15, 2017. Subjective Pt evaluation today including: conversation w/ patient, physical exam, lab review, review of studies, review of inpatient medication list Saw/examined the patient in room 289 She is seated comfortably, denies all symptoms Problem List Medical Problems: (1) Abdominal wound dehiscence Status: Acute (2) Aortic stenosis Status: Chronic (3) Constipation Status: Acute (4) Hernia Status: Acute Review of Systems Constitutional: No fever, No weakness Respiratory: No cough, No dyspnea at rest, No dyspnea on exertion, No hemoptysis, No shortness of breath, No sputum, No wheezing Cardiac: No chest pain, No edema, No palpitations Medications Current Inpatient Medications Medications (Trade) Dose Ordered Sig/Osman Route Start Time Stop Time Status Last Admin Dose Admin Heparin Sodium (Porcine) (Heparin Sq 5000 Unit/0.5ml) 5,000 unit Q12 SQ 01/13/17 21:00 02/12/17 20:59 01/15/17 08:43 5,000 UNIT Acetaminophen (Tylenol Tab) 650 mg Q4H PRN PO 01/13/17 12:00 02/12/17 11:59 Ondansetron HCl (Zofran Inj) 4 mg Q6H PRN IV 01/13/17 12:00 02/12/17 11:59 Nitroglycerin (Nitrostat Tab) 0.4 mg UD PRN SL 01/13/17 12:00 02/12/17 11:59 Ascorbic Acid (Vitamin C Tab) 500 mg QAM PO 01/14/17 09:00 02/13/17 08:59 01/15/17 08:40 500 MG Docusate Sodium (coLACE CAP) 100 mg DAILY PRN PO 01/13/17 13:00 02/12/17 12:59 Metoprolol Tartrate (Lopressor Tab) 50 mg DAILY PO 01/14/17 09:00 02/13/17 08:59 01/15/17 08:38 50 MG Multivitamins (Multivitamin Tab) 1 tab QAM PO 01/14/17 09:00 02/13/17 08:59 01/15/17 08:38 1 TAB Polyethylene (Miralax Powder Packet) 17 gm DAILY PRN PO 01/13/17 13:00 02/12/17 12:59 Sertraline HCl (Zoloft Tab) 25 mg DAILY PO 01/14/17 09:00 02/13/17 08:59 01/15/17 08:39 25 MG Cholecalciferol (Vitamin D Tab) 2,000 inter.unit QAM PO 01/14/17 09:00 02/13/17 08:59 01/15/17 08:40 2,000 INTER.UNIT Phenazopyridine HCl (Pyridium Tab) 100 mg TID PO 01/13/17 21:00 01/15/17 20:59 01/15/17 08:38 100 MG Simvastatin (Zocor Tab) 10 mg QAM PO 01/14/17 09:00 02/13/17 08:59 01/15/17 08:39 10 MG Amiodarone HCl (Cordarone Tab) 400 mg TID PO 01/14/17 14:00 02/13/17 13:59 Future Hold 01/15/17 08:39 400 MG Objective Vital Signs Date Time Temp Pulse Resp B/P Pulse Ox O2 Delivery O2 Flow Rate FiO2 01/15/17 11:15 36.8 57 18 103/54 97 01/15/17 09:45 65 93 01/15/17 08:40 65 112/65 01/15/17 07:25 36.7 63 18 151/67 93 Room Air 01/15/17 04:19 36.6 67 20 128/70 92 Room Air 01/15/17 04:00 Room Air 01/15/17 00:00 Room Air 01/14/17 23:05 36.9 61 20 105/53 90 Room Air 01/14/17 20:00 91 Room Air 01/14/17 19:58 36.6 59 20 127/64 91 2.0 01/14/17 16:00 91 Room Air 01/14/17 15:42 36.8 67 17 111/61 91 Room Air 01/14/17 13:21 94 Nasal Cannula 2.0 Physical Exam General Appearance: no apparent distress Respiratory/Chest: chest non-tender, lungs clear, normal breath sounds, no respiratory distress, no accessory muscle use Cardiovascular: + bradycardia, + systolic murmur (+3/6 systolic murmur) Abdomen: normal bowel sounds, non tender, soft Extremities: + pertinent finding (trace b/l LE edema) Neurologic/Psychiatric: no motor/sensory deficits, alert, normal mood/affect Laboratory Results Last 24 Hours Test 01/14/17 16:19 01/14/17 20:15 01/15/17 05:17 01/15/17 07:44 Bedside Glucose 89 mg/dl 99 mg/dl 97 mg/dl Sodium Level 139 mmol/L Potassium Level 3.7 mmol/L Chloride Level 100 mmol/L Carbon Dioxide Level 28 mmol/L Anion Gap 11.0 mmol/L Blood Urea Nitrogen 35 mg/dl Creatinine 1.30 mg/dl Est Creatinine Clear Calc Drug Dose 24.6 ml/min Estimated GFR () 42.4 Estimated GFR (Non- 36.6 BUN/Creatinine Ratio 27.1 Random Glucose 90 mg/dl Calcium Level 8.6 mg/dl Test 01/15/17 11:26 Bedside Glucose 164 mg/dl Assessment and Plan This is an 86 year old female with PMH of severe aortic stenosis, HTN, HLD, DM2 presented with acute shortness of breath, dyspnea on exertion, and lower extremity edema Asymptomatic Sinus Bradycardia 01/15 secondary to metoprolol and amiodarone use? held both for now rhythm strip shows what looks like a 2:1 AV block EKG shows marked sinus bradycardia patient is asymptomatic and has no symptoms noted today will discuss with cardiology Acute Heart Failure with Preserved Ejection Fraction in the setting of Severe Valvular Disease 01/15 held IV Lasix will d/c with PO 20mg Lasix monitor electrolytes 01/14 presented with dyspnea with exertion and edema in both legs received IV Lasix on admission symptoms improving today last echo showed a normal EF with severe , severe MR updated echo pending I's/O's, daily weights, low Na+ diet continue low dose diuretic for now Acute Kidney Injury creat is 1.3 today held IV Lasix Episode of A. Fib 01/15 was started on amiodarone held b-cassie and amio currently due to sinus leslie 01/14 currently on b-cassie was NSR during exam hold off on anticoagulation cardiology input would be appreciated HTN BP controlled continue home medications DM2 Last a1c = 4.9% stop all medications check BSGs and adjust accordingly HLD continue statin CKD stage 3 stable, monitor with diuretic use DVT ppx subq heparin FULL CODE
[2017-01-15] MEDS: ONDANSETRON INJ 2 MG/ML 2 ML VIAL IV PRN (14:01)
[2017-01-16] VITALS (7 sets, daily range): BP systolic 104–144; BP diastolic 44–76; PULSE 50–60; TEMP 36.4–36.8; O2SAT 92–96
[2017-01-16 05:57] LABS: HEMATOCRIT 36.8 % (37-47); MEAN CELL VOLUME 86.2 fL (80-100); MEAN CORPUSCULAR HEMOGLOBIN 28.1 pg (25-34); MEAN CORPUSCULAR HGB CONC 32.6 g/dl (32-36); MEAN PLATELET VOLUME 11.7 fL (7.4-10.4); PLATELET COUNT 126 K/uL (130-400); RED BLOOD COUNT 4.27 M/uL (4.2-5.4); WHITE BLOOD COUNT 8.04 K/uL (4.8-10.8)
[2017-01-16 06:33] LABS: BUN/CREATININE RATIO 21.3 (10-20); CALCIUM 8.6 mg/dl (8.5-10.1); CREATININE 2.4 mg/dl (0.60-1.20); MAGNESIUM 2.2 mg/dl (1.8-2.4); POTASSIUM 5.1 mmol/L (3.5-5.1)
[2017-01-16] MEDS: ONDANSETRON INJ 2 MG/ML 2 ML VIAL IV PRN (08:19)
[2017-01-16] MEDS: HEPARIN SOD 5000 UNIT/0.5 ML CARP SQ SCH ×2 (08:22→20:12)
--- NOTE | 2017-01-16 09:36 | PROGRESS NOTE ---
DATE: 01/16/2017 FOLLOWUP VISIT SUBJECTIVE: The patient is an 86-year-old female who has a history of severe aortic stenosis and presented with congestive heart failure. She after admission was noted to have paroxysmal atrial fibrillation and was started on oral amiodarone. The combination of metoprolol and amiodarone resulted in bradycardia and these medications have been held. She had an uneventful night but this morning she still remains bradycardic with heart rates in the 50s. She has not had a reoccurrence of the atrial fibrillation. The patient's creatinine is 2.3 and her diuretics have also been held. She has no complaints this morning except to say that she would like to return home. OBJECTIVE: VITAL SIGNS: Blood pressure is 140/70, pulse is regular at 55 beats per minute. She is afebrile. HEENT: Normocephalic. Pupils are equal and reactive to light. NECK: The neck veins are distended. Carotids have good upstrokes bilaterally. Thyroid is nonpalpable. RESPIRATORY: Breath sounds equal bilaterally and diminished at the bases. CARDIOVASCULAR: Heart has a regular rhythm. There is a harsh systolic murmur along the left sternal border. GASTROINTESTINAL: Abdomen is soft, nontender, without organomegaly. EXTREMITIES: Free of edema, digit clubbing, or cyanosis. NEUROLOGIC: Grossly intact. SKIN: Warm to touch. LYMPH NODES: Negative to palpation. LABORATORY DATA: Per the history of chief complaint. In addition, the TSH level is 4.84, free T4 is 1.22. Creatinine today is 2.4. IMPRESSION: 1. Severe critical aortic stenosis. 2. Congestive heart failure due to valvular heart disease. 3. Paroxysmal atrial fibrillation. 4. Bradycardia. 5. Chronic renal insufficiency. RECOMMENDATIONS: At this junction, I would continue to hold her medications including her diuretics, amiodarone and beta cassie. In the past, as I have mentioned, she has not been interested in consideration for surgery or other procedures for the aortic stenosis. If she has a reoccurrence of the atrial fibrillation and we need to give her medications, we may have to consider a permanent pacemaker for tachybrady syndrome if she is willing to consider this option.
[2017-01-16] MEDS: SIMVASTATIN 10 MG TAB PO SCH (11:05)
[2017-01-16] MEDS: SERTRALINE HCL 50 MG TAB PO SCH (11:05)
[2017-01-16] MEDS: MULTIVITAMIN TAB PO SCH (11:06)
[2017-01-16] MEDS: ASCORBIC ACID 500 MG TAB PO SCH (11:06)
[2017-01-16] MEDS: CHOLECALCIFEROL 1000 INTER.UNIT TAB PO SCH (11:06)
[2017-01-16] MEDS ORDERED: SODIUM CHLORIDE 0.9% 1000ML 1,000 ML IV SCH (13:00)
--- NOTE | 2017-01-16 13:02 | Progress Note ---
Subjective Date of Service: Jan 16, 2017. Subjective Pt evaluation today including: conversation w/ patient, physical exam, lab review, review of studies, conversation w/ quality improvement consultant, review of inpatient medication list Saw/examined the patient in room 289 She states she feels fine, no problems/issues to note denies shortness of breath or dyspnea; no chest pain or palpitations Problem List Medical Problems: (1) Abdominal wound dehiscence Status: Acute (2) Aortic stenosis Status: Chronic (3) Constipation Status: Acute (4) Hernia Status: Acute Review of Systems Constitutional: No chills, No fever Respiratory: No cough, No dyspnea at rest, No dyspnea on exertion, No hemoptysis, No shortness of breath, No sputum, No wheezing Cardiac: No chest pain, No edema, No palpitations Abdomen: No diarrhea, No nausea, No pain, No vomiting Medications Current Inpatient Medications Medications (Trade) Dose Ordered Sig/Osman Route Start Time Stop Time Status Last Admin Dose Admin Heparin Sodium (Porcine) (Heparin Sq 5000 Unit/0.5ml) 5,000 unit Q12 SQ 01/13/17 21:00 02/12/17 20:59 01/16/17 08:22 5,000 UNIT Acetaminophen (Tylenol Tab) 650 mg Q4H PRN PO 01/13/17 12:00 02/12/17 11:59 Ondansetron HCl (Zofran Inj) 4 mg Q6H PRN IV 01/13/17 12:00 02/12/17 11:59 01/16/17 08:19 4 MG Nitroglycerin (Nitrostat Tab) 0.4 mg UD PRN SL 01/13/17 12:00 02/12/17 11:59 Ascorbic Acid (Vitamin C Tab) 500 mg QAM PO 01/14/17 09:00 02/13/17 08:59 01/16/17 11:06 500 MG Docusate Sodium (coLACE CAP) 100 mg DAILY PRN PO 01/13/17 13:00 02/12/17 12:59 Metoprolol Tartrate (Lopressor Tab) 50 mg DAILY PO 01/14/17 09:00 02/13/17 08:59 Future Hold 01/15/17 08:38 50 MG Multivitamins (Multivitamin Tab) 1 tab QAM PO 01/14/17 09:00 02/13/17 08:59 01/16/17 11:06 1 TAB Polyethylene (Miralax Powder Packet) 17 gm DAILY PRN PO 01/13/17 13:00 02/12/17 12:59 Sertraline HCl (Zoloft Tab) 25 mg DAILY PO 01/14/17 09:00 02/13/17 08:59 01/16/17 11:05 25 MG Cholecalciferol (Vitamin D Tab) 2,000 inter.unit QAM PO 01/14/17 09:00 02/13/17 08:59 01/16/17 11:06 2,000 INTER.UNIT Simvastatin (Zocor Tab) 10 mg QAM PO 01/14/17 09:00 02/13/17 08:59 01/16/17 11:05 10 MG Amiodarone HCl (Cordarone Tab) 400 mg TID PO 01/14/17 14:00 02/13/17 13:59 Future Hold 01/15/17 08:39 400 MG Objective Vital Signs Date Time Temp Pulse Resp B/P Pulse Ox O2 Delivery O2 Flow Rate FiO2 01/16/17 11:18 36.5 53 18 110/44 95 01/16/17 08:00 Room Air 01/16/17 07:34 36.4 50 18 104/51 93 01/16/17 04:00 36.6 60 18 144/76 96 Room Air 01/16/17 04:00 Room Air 01/16/17 00:00 Room Air 01/15/17 23:57 36.8 51 20 103/56 93 Room Air 01/15/17 20:00 91 Room Air 01/15/17 16:00 91 Room Air 01/15/17 15:23 36.5 56 16 110/61 91 Room Air Physical Exam General Appearance: no apparent distress Respiratory/Chest: chest non-tender, lungs clear, normal breath sounds, no respiratory distress, no accessory muscle use Cardiovascular: regular rate, rhythm, no murmur, + pertinent finding (trace edema b/l LE) Abdomen: normal bowel sounds, non tender, soft Laboratory Results Last 24 Hours Test 01/15/17 16:14 01/15/17 16:41 01/15/17 20:32 01/16/17 05:15 Bedside Glucose 125 mg/dl 120 mg/dl Free Thyroxine 1.22 ng/dl White Blood Count 8.04 K/uL Red Blood Count 4.27 M/uL Hemoglobin 12.0 g/dL Hematocrit 36.8 % Mean Corpuscular Volume 86.2 fL Mean Corpuscular Hemoglobin 28.1 pg Mean Corpuscular Hemoglobin Concent 32.6 g/dl RDW Standard Deviation 51.7 fL RDW Coefficient of Variation 16.6 % Platelet Count 126 K/uL Mean Platelet Volume 11.7 fL Sodium Level 137 mmol/L Potassium Level 5.1 mmol/L Chloride Level 98 mmol/L Carbon Dioxide Level 24 mmol/L Anion Gap 15.0 mmol/L Blood Urea Nitrogen 51 mg/dl Creatinine 2.40 mg/dl Est Creatinine Clear Calc Drug Dose 13.3 ml/min Estimated GFR () 20.2 Estimated GFR (Non- 17.4 BUN/Creatinine Ratio 21.3 Random Glucose 73 mg/dl Calcium Level 8.6 mg/dl Magnesium Level 2.2 mg/dl Test 01/16/17 07:44 01/16/17 11:31 Bedside Glucose 80 mg/dl 113 mg/dl Assessment and Plan This is an 86 year old female with PMH of severe aortic stenosis, HTN, HLD, DM2 presented with acute shortness of breath, dyspnea on exertion, and lower extremity edema Asymptomatic Sinus Bradycardia 01/16 will monitor in tele off of amiodarone and metoprolol again HRs improving to the mid to upper 50's 01/15 secondary to metoprolol and amiodarone use? held both for now rhythm strip shows what looks like a 2:1 AV block EKG shows marked sinus bradycardia patient is asymptomatic and has no symptoms noted today will discuss with cardiology Acute Kidney Injury 01/16 creat has jumped to 2.4 again, this is likely related to over-diuresis I'll add gentle hydration, at 80mL/hr - monitor for overload as she has severe 01/15 creat is 1.3 today held IV Lasix Acute Heart Failure with Preserved Ejection Fraction in the setting of Severe Valvular Disease 01/15 held IV Lasix will d/c with PO 20mg Lasix monitor electrolytes 01/14 presented with dyspnea with exertion and edema in both legs received IV Lasix on admission symptoms improving today last echo showed a normal EF with severe , severe MR updated echo pending I's/O's, daily weights, low Na+ diet continue low dose diuretic for now Episode of A. Fib 3/13 was started on amiodarone held b-cassie and amio currently due to sinus leslie 01/14 currently on b-cassie was NSR during exam hold off on anticoagulation cardiology input would be appreciated HTN BP controlled continue home medications DM2 Last a1c = 4.9% stop all medications check BSGs and adjust accordingly HLD continue statin CKD stage 3 stable, monitor with diuretic use DVT ppx subq heparin FULL CODE
[2017-01-16] MEDS ORDERED: SODIUM CHLORIDE 0.9% 1000ML 1,000 ML IV ONE (13:15)
[2017-01-17] VITALS (9 sets, daily range): BP systolic 120–150; BP diastolic 63–73; PULSE 66–71; TEMP 36.2–36.7; O2SAT 90–95
[2017-01-17 06:25] LABS: HEMATOCRIT 33.7 % (37-47); MEAN CELL VOLUME 85.8 fL (80-100); MEAN CORPUSCULAR HEMOGLOBIN 28.2 pg (25-34); MEAN CORPUSCULAR HGB CONC 32.9 g/dl (32-36); PLATELET COUNT 106 K/uL (130-400); RED BLOOD COUNT 3.93 M/uL (4.2-5.4); WHITE BLOOD COUNT 5.96 K/uL (4.8-10.8)
[2017-01-17 07:12] LABS: BUN/CREATININE RATIO 27.7 (10-20); CALCIUM 8.1 mg/dl (8.5-10.1); CREATININE 2.3 mg/dl (0.60-1.20); MAGNESIUM 2.2 mg/dl (1.8-2.4); POTASSIUM 4.3 mmol/L (3.5-5.1)
[2017-01-17] MEDS: MULTIVITAMIN TAB PO SCH (08:39)
[2017-01-17] MEDS: CHOLECALCIFEROL 1000 INTER.UNIT TAB PO SCH (08:40)
[2017-01-17] MEDS: SIMVASTATIN 10 MG TAB PO SCH (08:40)
[2017-01-17] MEDS: SERTRALINE HCL 50 MG TAB PO SCH (08:40)
[2017-01-17] MEDS: ASCORBIC ACID 500 MG TAB PO SCH (08:41)
[2017-01-17] MEDS: HEPARIN SOD 5000 UNIT/0.5 ML CARP SQ SCH ×2 (08:43→22:00)
[2017-01-17] MEDS ORDERED: SODIUM CHLORIDE 0.9% 1000ML 1,000 ML IV SCH (10:45)
--- NOTE | 2017-01-17 10:46 | Progress Note ---
Subjective Date of Service: Jan 17, 2017. Subjective Pt evaluation today including: conversation w/ patient, physical exam, lab review, review of studies, review of inpatient medication list Saw/examined the patient in room 289 She is doing well today; denying any pain, eager to go home denies shortness of breath or chest pain, denies palpitations Problem List Medical Problems: (1) Abdominal wound dehiscence Status: Acute (2) Aortic stenosis Status: Chronic (3) Constipation Status: Acute (4) Hernia Status: Acute Review of Systems Constitutional: No chills, No fever Respiratory: No cough, No shortness of breath, No sputum Cardiac: No chest pain, No edema, No palpitations Abdomen: No diarrhea, No nausea, No pain, No vomiting Heme: No abnormal bleeding/bruising Medications Current Inpatient Medications Medications (Trade) Dose Ordered Sig/Osman Route Start Time Stop Time Status Last Admin Dose Admin Heparin Sodium (Porcine) (Heparin Sq 5000 Unit/0.5ml) 5,000 unit Q12 SQ 01/13/17 21:00 02/12/17 20:59 01/17/17 08:43 5,000 UNIT Acetaminophen (Tylenol Tab) 650 mg Q4H PRN PO 01/13/17 12:00 02/12/17 11:59 Ondansetron HCl (Zofran Inj) 4 mg Q6H PRN IV 01/13/17 12:00 02/12/17 11:59 01/16/17 08:19 4 MG Nitroglycerin (Nitrostat Tab) 0.4 mg UD PRN SL 01/13/17 12:00 02/12/17 11:59 Ascorbic Acid (Vitamin C Tab) 500 mg QAM PO 01/14/17 09:00 02/13/17 08:59 01/17/17 08:41 500 MG Docusate Sodium (coLACE CAP) 100 mg DAILY PRN PO 01/13/17 13:00 02/12/17 12:59 Metoprolol Tartrate (Lopressor Tab) 50 mg DAILY PO 01/14/17 09:00 02/13/17 08:59 Future Hold 01/15/17 08:38 50 MG Multivitamins (Multivitamin Tab) 1 tab QAM PO 01/14/17 09:00 02/13/17 08:59 01/17/17 08:39 1 TAB Polyethylene (Miralax Powder Packet) 17 gm DAILY PRN PO 01/13/17 13:00 02/12/17 12:59 Sertraline HCl (Zoloft Tab) 25 mg DAILY PO 01/14/17 09:00 02/13/17 08:59 01/17/17 08:40 25 MG Cholecalciferol (Vitamin D Tab) 2,000 inter.unit QAM PO 01/14/17 09:00 02/13/17 08:59 01/17/17 08:40 2,000 INTER.UNIT Simvastatin (Zocor Tab) 10 mg QAM PO 01/14/17 09:00 02/13/17 08:59 01/17/17 08:40 10 MG Amiodarone HCl 400 mg 400 mg TID PO 01/14/17 14:00 02/13/17 13:59 Future Hold 01/15/17 08:39 400 MG Sodium Chloride (Nss 1000ml) 1,000 ml @ 80 mls/hr [id number] IV 01/17/17 10:45 02/16/17 10:44 UNV Objective Vital Signs Date Time Temp Pulse Resp B/P Pulse Ox O2 Delivery O2 Flow Rate FiO2 01/17/17 07:42 36.5 71 16 142/64 90 01/17/17 05:00 36.7 67 20 150/65 92 Room Air 01/17/17 04:00 Room Air 01/17/17 00:00 Room Air 01/16/17 20:00 93 Room Air 01/16/17 19:31 36.5 56 20 113/68 92 Room Air 01/16/17 16:24 93 Room Air 01/16/17 15:03 36.8 55 20 110/46 93 Room Air 01/16/17 12:00 Room Air 01/16/17 11:18 36.5 53 18 110/44 95 Physical Exam General Appearance: no apparent distress Respiratory/Chest: chest non-tender, lungs clear, normal breath sounds, no respiratory distress, no accessory muscle use Cardiovascular: regular rate, rhythm, + systolic murmur (+3/6 systolic murmur) Abdomen: normal bowel sounds, non tender, soft Extremities: + pertinent finding (+1 pitting edema on RLE) Neurologic/Psychiatric: no motor/sensory deficits, alert, normal mood/affect Laboratory Results Last 24 Hours Test 01/16/17 11:31 01/16/17 16:15 01/16/17 20:07 01/17/17 06:11 Bedside Glucose 113 mg/dl 125 mg/dl 146 mg/dl White Blood Count 5.96 K/uL Red Blood Count 3.93 M/uL Hemoglobin 11.1 g/dL Hematocrit 33.7 % Mean Corpuscular Volume 85.8 fL Mean Corpuscular Hemoglobin 28.2 pg Mean Corpuscular Hemoglobin Concent 32.9 g/dl RDW Standard Deviation 51.1 fL RDW Coefficient of Variation 16.6 % Platelet Count 106 K/uL Mean Platelet Volume 11.0 fL Sodium Level 137 mmol/L Potassium Level 4.3 mmol/L Chloride Level 100 mmol/L Carbon Dioxide Level 26 mmol/L Anion Gap 11.0 mmol/L Blood Urea Nitrogen 64 mg/dl Creatinine 2.30 mg/dl Est Creatinine Clear Calc Drug Dose 14.0 ml/min Estimated GFR () 21.3 Estimated GFR (Non- 18.4 BUN/Creatinine Ratio 27.7 Random Glucose 96 mg/dl Calcium Level 8.1 mg/dl Magnesium Level 2.2 mg/dl Test 01/17/17 07:59 Bedside Glucose 106 mg/dl Assessment and Plan This is an 86 year old female with PMH of severe aortic stenosis, HTN, HLD, DM2 presented with acute shortness of breath, dyspnea on exertion, and lower extremity edema Asymptomatic Sinus Bradycardia, resolved 01/17 HRs improved d/c amiodarone/metoprolol 01/16 will monitor in tele off of amiodarone and metoprolol again HRs improving to the mid to upper 50's 01/15 secondary to metoprolol and amiodarone use? held both for now rhythm strip shows what looks like a 2:1 AV block EKG shows marked sinus bradycardia patient is asymptomatic and has no symptoms noted today will discuss with cardiology Acute Kidney Injury 01/17 creat of 2.3 appreciate nephro input will give some IVFs today, 80mL/hr for 4-5 hours recheck PRP in afternoon, if improving creat, can d/c home, if not, will hold off until tomorrow 01/16 creat has jumped to 2.4 again, this is likely related to over-diuresis I'll add gentle hydration, at 80mL/hr - monitor for overload as she has severe 01/15 creat is 1.3 today held IV Lasix Acute Heart Failure with Preserved Ejection Fraction in the setting of Severe Valvular Disease 01/15 held IV Lasix will d/c with PO 20mg Lasix monitor electrolytes 01/14 presented with dyspnea with exertion and edema in both legs received IV Lasix on admission symptoms improving today last echo showed a normal EF with severe , severe MR updated echo pending I's/O's, daily weights, low Na+ diet continue low dose diuretic for now Episode of A. Fib 01/15 was started on amiodarone held b-cassie and amio currently due to sinus leslie 01/14 currently on b-cassie was NSR during exam hold off on anticoagulation cardiology input would be appreciated HTN BP controlled continue home medications DM2 Last a1c = 4.9% stop all medications check BSGs and adjust accordingly HLD continue statin CKD stage 3 stable, monitor with diuretic use DVT ppx subq heparin FULL CODE
--- NOTE | 2017-01-17 13:09 | Nephrology Consultation ---
Nephrology Consultation Date of Consultation: Jan 17, 2017. Attending Physician: Dr Dejesus Requesting Physician: Dr Dejesus Reason for Consultation: SPIKE History of Present Illness 86 year old female w/ severe aortic stenosis admitted on 01/13 w/ dyspnea and LE edema from acute HF exacerbation. Other PMH includes DM, HTN. She had an episode of transient AF early in the admission. Had been undergoing gentle diuresis adn is about 1.5 L negative based on standing weights this admission. Her creatinine was 0.9 on admission w/ acceptable chemistries; by 01/15 creatinine was 1.3; then 2.4 yesterday w/ K 5.1 and today 2.3. Past Medical/Surgical History Medical Problems: (1) Abdominal wound dehiscence Status: Acute (2) Aortic stenosis Status: Chronic (3) Constipation Status: Acute (4) Hernia Status: Acute Family History Cancer Diabetes mellitus Gallbladder disease Heart disease Hypertension Social History Smoking Status: Never Smoker Alcohol Use: none Drug Use: none Housing Status: lives with family Occupation Status: retired Allergies Coded Allergies: No Known Allergies (Unverified , 01/13/17) Medications Current Inpatient Medications Medications (Trade) Dose Ordered Sig/Osman Route Start Time Stop Time Status Last Admin Dose Admin Heparin Sodium (Porcine) (Heparin Sq 5000 Unit/0.5ml) 5,000 unit Q12 SQ 01/13/17 21:00 02/12/17 20:59 01/17/17 08:43 5,000 UNIT Acetaminophen (Tylenol Tab) 650 mg Q4H PRN PO 01/13/17 12:00 02/12/17 11:59 Ondansetron HCl (Zofran Inj) 4 mg Q6H PRN IV 01/13/17 12:00 02/12/17 11:59 01/16/17 08:19 4 MG Nitroglycerin (Nitrostat Tab) 0.4 mg UD PRN SL 01/13/17 12:00 02/12/17 11:59 Ascorbic Acid (Vitamin C Tab) 500 mg QAM PO 01/14/17 09:00 02/13/17 08:59 01/17/17 08:41 500 MG Docusate Sodium (coLACE CAP) 100 mg DAILY PRN PO 01/13/17 13:00 02/12/17 12:59 Metoprolol Tartrate (Lopressor Tab) 50 mg DAILY PO 01/14/17 09:00 02/13/17 08:59 Future Hold 01/15/17 08:38 50 MG Multivitamins (Multivitamin Tab) 1 tab QAM PO 01/14/17 09:00 02/13/17 08:59 01/17/17 08:39 1 TAB Polyethylene (Miralax Powder Packet) 17 gm DAILY PRN PO 01/13/17 13:00 02/12/17 12:59 Sertraline HCl (Zoloft Tab) 25 mg DAILY PO 01/14/17 09:00 02/13/17 08:59 01/17/17 08:40 25 MG Cholecalciferol (Vitamin D Tab) 2,000 inter.unit QAM PO 01/14/17 09:00 02/13/17 08:59 01/17/17 08:40 2,000 INTER.UNIT Simvastatin (Zocor Tab) 10 mg QAM PO 01/14/17 09:00 02/13/17 08:59 01/17/17 08:40 10 MG Amiodarone HCl (Cordarone Tab) 400 mg TID PO 01/14/17 14:00 02/13/17 13:59 Future Hold 01/15/17 08:39 400 MG Home Meds and Scripts Medications Dose Route/Sig Max Daily Dose Days Date Category Zoloft (Sertraline Hcl) 25 Mg Tab 25 Mg PO DAILY 01/13/17 Reported Lopressor (Metoprolol Tartrate) 25 Mg Tab 50 Mg PO DAILY 30 01/13/17 Rx Vitamin D (Cholecalciferol) 2,000 Unit Cap 2,000 Unit PO QAM 01/13/17 Reported Zocor (Simvastatin) 10 Mg Tab 10 Mg PO QAM 01/13/17 Reported Multi Vitamin Daily (Multiple Vitamin) 1 Tab Tab 1 Tab PO QAM 10/25/16 Reported Colace (Docusate Sodium) 100 Mg Cap 100 Mg PO DAILY PRN 15 10/25/16 Reported Miralax (Polyethylene Glycol 3350) 1 Pow Pow 17 Gm PO DAILY PRN 10/25/16 Reported Glucophage (Metformin Hcl) 500 Mg Tab 500 Mg PO QAM 10/25/16 Reported Vitamin C (Ascorbic Acid) 500 Mg Tab 500 Mg PO QAM 04/18/16 Reported Review of Systems Constitutional: No fatigue, No fever, No weakness, No weight loss Eyes: No worsening of vision ENT: No hearing loss Respiratory: No cough, No dyspnea on exertion, No shortness of breath Cardiac: No chest pain, No edema, No orthopnea, No palpitations Abdomen: No diarrhea, No nausea, No pain, No vomiting Musculoskeletal: No joint pain, No muscle pain Female : No dysuria, No hematuria, No urinary frequency Neuro: No balance problems, No weakness Psych: + anxiety Heme: No abnormal bleeding/bruising Endo: No fatigue Skin: No itch, No rash Physical Exam Date Time Temp Pulse Resp B/P Pulse Ox O2 Delivery O2 Flow Rate FiO2 01/17/17 07:42 36.5 71 16 142/64 90 01/17/17 05:00 36.7 67 20 150/65 92 Room Air 01/17/17 04:00 Room Air 01/17/17 00:00 Room Air 01/16/17 20:00 93 Room Air 01/16/17 19:31 36.5 56 20 113/68 92 Room Air 01/16/17 16:24 93 Room Air 01/16/17 15:03 36.8 55 20 110/46 93 Room Air 01/16/17 12:00 Room Air 01/16/17 11:18 36.5 53 18 110/44 95 24-Hour Column 01/17/17 07:59 Intake Total 1061 ml Output Total 0 ml Balance 1061 ml General Appearance: WD/WN, no apparent distress (sitting up in chair on RA) Eyes: EOMI ENT: hearing grossly normal Neck: supple Respiratory/Chest: + decreased breath sounds (slightly kyphotic spine), + crackles (fine/ bibasilar) Cardiovascular: regular rate, rhythm, + systolic murmur Abdomen: normal bowel sounds, non tender, soft (no durbin) Extremities: + pedal edema (LLE trace) Neurologic/Psych: alert, normal mood/affect, oriented x 3, + pertinent finding (very anxious for hospital d/c) Skin: normal color, no jaundice, warm/dry Diagnostics Last 24 Hours Test 01/16/17 11:31 01/16/17 16:15 01/16/17 20:07 01/17/17 06:11 Bedside Glucose 113 mg/dl 125 mg/dl 146 mg/dl White Blood Count 5.96 K/uL Red Blood Count 3.93 M/uL Hemoglobin 11.1 g/dL Hematocrit 33.7 % Mean Corpuscular Volume 85.8 fL Mean Corpuscular Hemoglobin 28.2 pg Mean Corpuscular Hemoglobin Concent 32.9 g/dl RDW Standard Deviation 51.1 fL RDW Coefficient of Variation 16.6 % Platelet Count 106 K/uL Mean Platelet Volume 11.0 fL Sodium Level 137 mmol/L Potassium Level 4.3 mmol/L Chloride Level 100 mmol/L Carbon Dioxide Level 26 mmol/L Anion Gap 11.0 mmol/L Blood Urea Nitrogen 64 mg/dl Creatinine 2.30 mg/dl Est Creatinine Clear Calc Drug Dose 14.0 ml/min Estimated GFR () 21.3 Estimated GFR (Non- 18.4 BUN/Creatinine Ratio 27.7 Random Glucose 96 mg/dl Calcium Level 8.1 mg/dl Magnesium Level 2.2 mg/dl Test 01/17/17 07:59 Bedside Glucose 106 mg/dl Diagnostic Radiology: admission cxr w/ mild plm edema Assessment & Plan 86 y/o F w/ severe admitted w/ acute HF from same and now w/ presumably nonoliguric SPIKE after diuresis. her last lasix dose was 01/14 1800. She was getting NS at 80mL hourly but this was stopped yesterday Acute renal failure, favor prerenal in a preload dependent pt d/t her valvular disease. Baseline creatinine 0.9. -needs strict I/o (no outputs recorded past 2 days) and daily standing weight -daily bmp -<2 gm daily na diet -repeat UA; will also get urine creat, urine Na, if needed urine cx -low threshold to repeat CXR off of diuretics, though she is currently on RA -diuretics at this point PRN only -not currently on nor has she apart from lasix received nephrotoxic meds. -no indication at this point even to discuss dialysis; hopefully this will remain the case >>>pt is very anxious for d/c > consider trial of 5-6 hrs of NS at 80 mL /hr and recheck bmp > if improved at all, could be followed as outpt provided we have above data Appreciate consult; will follow with you. care coordinated w/ Italia Dejesus and Alejandro
[2017-01-17 14:14] LABS: MANUAL MICROSCOPIC REQUIRED? NO; REVIEW REQ? NO; URINE APPEARANCE CLOUDY (CLEAR); URINE BILIRUBIN NEG (NEG); URINE COLOR DK YELLOW; URINE EPITHELIAL CELL AUTO >30 /lpf (0-5); URINE NITRITE POS (NEG); URINE SPECIFIC GRAVITY 1.017 (1.000-1.030); UROBILINOGEN NEG (NEG); ZZUR CULT IF INDIC CLEAN CATCH YES
[2017-01-17 17:55] LABS: BUN/CREATININE RATIO 30.5 (10-20); CALCIUM 8.2 mg/dl (8.5-10.1); CREATININE 1.9 mg/dl (0.60-1.20); POTASSIUM 3.9 mmol/L (3.5-5.1)
[2017-01-18 00:34] VITALS: BP 106/63; PULSE 64; TEMP 36.4; O2SAT 95
[2017-01-18 04:45] VITALS: BP_SYST 106; BP_SYST 108; BP_DIAS 62; BP_DIAS 63; PULSE 64; TEMP 36.5; O2SAT 95
[2017-01-18 05:45] LABS: HEMATOCRIT 35.1 % (37-47); MEAN CELL VOLUME 89.3 fL (80-100); MEAN CORPUSCULAR HEMOGLOBIN 28.5 pg (25-34); MEAN CORPUSCULAR HGB CONC 31.9 g/dl (32-36); MEAN PLATELET VOLUME 11.8 fL (7.4-10.4); PLATELET COUNT 112 K/uL (130-400); RED BLOOD COUNT 3.93 M/uL (4.2-5.4); WHITE BLOOD COUNT 4.88 K/uL (4.8-10.8)
[2017-01-18 06:14] LABS: BUN/CREATININE RATIO 31.6 (10-20); CALCIUM 8.1 mg/dl (8.5-10.1); CREATININE 1.4 mg/dl (0.60-1.20)
[2017-01-18 06:56] VITALS: BP 145/76; PULSE 70; TEMP 36.8; O2SAT 91
[2017-01-18] MEDS: SIMVASTATIN 10 MG TAB PO SCH (08:54)
[2017-01-18] MEDS: CHOLECALCIFEROL 1000 INTER.UNIT TAB PO SCH (08:55)
[2017-01-18] MEDS: ASCORBIC ACID 500 MG TAB PO SCH (08:55)
[2017-01-18] MEDS: MULTIVITAMIN TAB PO SCH (08:55)
[2017-01-18] MEDS: SERTRALINE HCL 50 MG TAB PO SCH (08:55)
[2017-01-18] MEDS: HEPARIN SOD 5000 UNIT/0.5 ML CARP SQ SCH (08:57)
--- NOTE | 2017-01-18 09:45 | Progress Note ---
Subjective Date of Service: Jan 18, 2017. Subjective Pt evaluation today including: conversation w/ patient, physical exam, lab review, review of studies, review of inpatient medication list Saw/examined the patient in room 289 She's doing well, denies chest pain or palpitations No other problems/issues to note Problem List Medical Problems: (1) Abdominal wound dehiscence Status: Acute (2) Aortic stenosis Status: Chronic (3) Constipation Status: Acute (4) Hernia Status: Acute Review of Systems Constitutional: No chills, No fever, No weakness Respiratory: No cough, No shortness of breath, No sputum Cardiac: No chest pain, No edema, No palpitations Abdomen: No diarrhea, No nausea, No pain, No vomiting Heme: No abnormal bleeding/bruising Medications Current Inpatient Medications Medications (Trade) Dose Ordered Sig/Osman Route Start Time Stop Time Status Last Admin Dose Admin Heparin Sodium (Porcine) (Heparin Sq 5000 Unit/0.5ml) 5,000 unit Q12 SQ 01/13/17 21:00 02/12/17 20:59 01/17/17 22:00 5,000 UNIT Acetaminophen (Tylenol Tab) 650 mg Q4H PRN PO 01/13/17 12:00 02/12/17 11:59 Ondansetron HCl (Zofran Inj) 4 mg Q6H PRN IV 01/13/17 12:00 02/12/17 11:59 01/16/17 08:19 4 MG Nitroglycerin (Nitrostat Tab) 0.4 mg UD PRN SL 01/13/17 12:00 02/12/17 11:59 Ascorbic Acid (Vitamin C Tab) 500 mg QAM PO 01/14/17 09:00 02/13/17 08:59 01/18/17 08:55 500 MG Docusate Sodium (coLACE CAP) 100 mg DAILY PRN PO 01/13/17 13:00 02/12/17 12:59 Metoprolol Tartrate (Lopressor Tab) 50 mg DAILY PO 01/14/17 09:00 02/13/17 08:59 Future Hold 01/15/17 08:38 50 MG Multivitamins (Multivitamin Tab) 1 tab QAM PO 01/14/17 09:00 02/13/17 08:59 01/18/17 08:55 1 TAB Polyethylene (Miralax Powder Packet) 17 gm DAILY PRN PO 01/13/17 13:00 02/12/17 12:59 Sertraline HCl (Zoloft Tab) 25 mg DAILY PO 01/14/17 09:00 02/13/17 08:59 01/18/17 08:55 25 MG Cholecalciferol (Vitamin D Tab) 2,000 inter.unit QAM PO 01/14/17 09:00 02/13/17 08:59 01/18/17 08:55 2,000 INTER.UNIT Simvastatin (Zocor Tab) 10 mg QAM PO 01/14/17 09:00 02/13/17 08:59 01/18/17 08:54 10 MG Amiodarone HCl (Cordarone Tab) 400 mg TID PO 01/14/17 14:00 02/13/17 13:59 Future Hold 01/15/17 08:39 400 MG Objective Vital Signs Date Time Temp Pulse Resp B/P Pulse Ox O2 Delivery O2 Flow Rate FiO2 01/18/17 06:56 36.8 70 18 145/76 91 Room Air 01/18/17 04:45 36.5 64 18 108/62 95 01/18/17 04:00 Room Air 01/18/17 00:34 36.4 64 18 106/63 95 Room Air 01/18/17 00:00 Room Air 01/17/17 20:08 36.3 70 20 133/73 92 Room Air 01/17/17 20:00 92 Room Air 01/17/17 16:00 93 Room Air 01/17/17 15:21 36.2 66 18 120/73 93 Room Air 01/17/17 12:00 95 Room Air 01/17/17 11:02 36.7 66 16 125/63 93 Room Air Physical Exam General Appearance: no apparent distress Respiratory/Chest: lungs clear, normal breath sounds, no respiratory distress, no accessory muscle use Cardiovascular: regular rate, rhythm, + systolic murmur (+3/6 holosystolic murmur) Abdomen: normal bowel sounds, non tender, soft Extremities: + pertinent finding (+1 pitting edema b/l LE) Neurologic/Psychiatric: no motor/sensory deficits, alert, normal mood/affect Laboratory Results Last 24 Hours Test 01/17/17 11:19 01/17/17 13:30 3/15/17 16:15 01/17/17 17:05 Bedside Glucose 112 mg/dl 109 mg/dl Urine Color DK YELLOW Urine Appearance CLOUDY Urine pH 5.0 Urine Specific [place] 1.017 Urine Protein 1+ Urine Glucose (UA) NEG Urine Ketones NEG Urine Occult Blood NEG Urine Nitrite POS Urine Bilirubin NEG Urine Urobilinogen NEG Urine Leukocyte Esterase MODERATE Urine WBC (Auto) >30 /hpf Urine RBC (Auto) 5-10 /hpf Urine Hyaline Casts (Auto) 5-10 /lpf Urine Epithelial Cells (Auto) >30 /lpf Urine Bacteria (Auto) 1+ Urine Random Creatinine 130.0 mg/dl Urine Random Sodium 39 mEq/L Sodium Level 138 mmol/L Potassium Level 3.9 mmol/L Chloride Level 102 mmol/L Carbon Dioxide Level 28 mmol/L Anion Gap 8.0 mmol/L Blood Urea Nitrogen 58 mg/dl Creatinine 1.90 mg/dl Est Creatinine Clear Calc Drug Dose 16.9 ml/min Estimated GFR () 26.8 Estimated GFR (Non- 23.1 BUN/Creatinine Ratio 30.5 Random Glucose 106 mg/dl Calcium Level 8.2 mg/dl Test 01/17/17 19:59 01/18/17 05:31 01/18/17 07:34 Bedside Glucose 117 mg/dl 90 mg/dl White Blood Count 4.88 K/uL Red Blood Count 3.93 M/uL Hemoglobin 11.2 g/dL Hematocrit 35.1 % Mean Corpuscular Volume 89.3 fL Mean Corpuscular Hemoglobin 28.5 pg Mean Corpuscular Hemoglobin Concent 31.9 g/dl RDW Standard Deviation 53.8 fL RDW Coefficient of Variation 16.6 % Platelet Count 112 K/uL Mean Platelet Volume 11.8 fL Sodium Level 138 mmol/L Potassium Level 4.0 mmol/L Chloride Level 103 mmol/L Carbon Dioxide Level 29 mmol/L Anion Gap 6.0 mmol/L Blood Urea Nitrogen 44 mg/dl Creatinine 1.40 mg/dl Est Creatinine Clear Calc Drug Dose 22.9 ml/min Estimated GFR () 38.8 Estimated GFR (Non- 33.5 BUN/Creatinine Ratio 31.6 Random Glucose 89 mg/dl Calcium Level 8.1 mg/dl Magnesium Level 2.0 mg/dl Assessment and Plan This is an 86 year old female with PMH of severe aortic stenosis, HTN, HLD, DM2 presented with acute shortness of breath, dyspnea on exertion, and lower extremity edema Asymptomatic Sinus Bradycardia, resolved 01/18 will d/c home today hold metoprolol and amiodarone on discharge 01/17 HRs improved d/c amiodarone/metoprolol 01/16 will monitor in tele off of amiodarone and metoprolol again HRs improving to the mid to upper 50's 01/15 secondary to metoprolol and amiodarone use? held both for now rhythm strip shows what looks like a 2:1 AV block EKG shows marked sinus bradycardia patient is asymptomatic and has no symptoms noted today will discuss with cardiology Acute Kidney Injury 01/18 creat down to 1.4 today no other 01/17 creat of 2.3 appreciate nephro input will give some IVFs today, 80mL/hr for 4-5 hours recheck PRP in afternoon, if improving creat, can d/c home, if not, will hold off until tomorrow 01/16 creat has jumped to 2.4 again, this is likely related to over-diuresis I'll add gentle hydration, at 80mL/hr - monitor for overload as she has severe 01/15 creat is 1.3 today held IV Lasix Acute Heart Failure with Preserved Ejection Fraction in the setting of Severe Valvular Disease 01/18 will d/c home with Lasix 20mg PRN 01/15 held IV Lasix will d/c with PO 20mg Lasix monitor electrolytes 01/14 presented with dyspnea with exertion and edema in both legs received IV Lasix on admission symptoms improving today last echo showed a normal EF with severe , severe MR updated echo pending I's/O's, daily weights, low Na+ diet continue low dose diuretic for now Episode of A. Fib 01/15 was started on amiodarone held b-cassie and amio currently due to sinus leslie 01/14 currently on b-cassie was NSR during exam hold off on anticoagulation cardiology input would be appreciated HTN BP controlled continue home medications DM2 Last a1c = 4.9% stop all medications check BSGs and adjust accordingly HLD continue statin CKD stage 3 stable, monitor with diuretic use DVT ppx subq heparin FULL CODE
[2017-01-18] MEDS ORDERED: FURO20TA PO (09:46)
--- NOTE | 2017-01-18 09:56 | Discharge Instructions ---
Discharge Instructions Date of Service Jan 18, 2017. Admission Reason for Admission: Chf,Congestive Heart Failure Discharge Discharge Diagnosis / Problem: Severe Aortic Stenosis; Episode of A. Fib; SPIKE Discharge Goals Goal(s): Decrease discomfort, Improve function, Diagnostic testing, Therapeutic intervention Activity Recommendations Activity Limitations: resume your previous activity . Instructions / Follow-Up Instructions / Follow-Up Please follow-up with Dr. Geiger on January 22 @ 1:50PM * Please stop taking metoprolol for now - you will see cardiology as outpatient and they will discuss restarting this * You will be prescribed Lasix - only take this on an as needed basis - if you feel short of breath or lower extremity swelling increases Current Hospital Diet Patient's current hospital diet: AHA Diet (Heart Healthy), Diabetes Type 2 Diet , Low Sodium Diet (2gm Na) Discharge Diet Recommended Diet: AHA Diet (Heart Healthy) Pending Studies Studies pending at discharge: no Laboratory Results Hemoglobin A1c Test 10/26/16 05:34 Range/Units Estimated Average Glucose 94 mg/dl Hemoglobin A1c 4.9 4.5-5.6 % Lipid Panel Test 10/26/16 05:34 Range/Units Triglycerides Level 65 0-150 mg/dl Cholesterol Level 126 0-200 mg/dl HDL Cholesterol 56 mg/dl Cholesterol/HDL Ratio 2.3 LDL Cholesterol, Calculated 57 mg/dl Medical Emergencies . Who to Call and When: Medical Emergencies: If at any time you feel your situation is an emergency, please call 911 immediately. . Non-Emergent Contact Non-Emergency issues call your: Primary Care Provider, Bell Clerk . . "Provider Documentation" section prepared by Kristin Dejesus. VTE Core Measure Inpt VTE Proph given/why not?: Unfractionated heparin SQ
--- NOTE | 2017-01-18 10:02 | Discharge Summary ---
Discharge Summary Date of Service Jan 18, 2017. Discharge Summary Admission Date: Jan 13, 2017 at 12:01 Discharge Date: Jan 18, 2017 Discharge Disposition: Home Principal Diagnosis: Severe Aortic Stenosis CHF exacerbation Acute Kidney Injury Episode of Keke Waldrop Medication Reconciliation New Medications: Furosemide (Lasix) 20 Mg Tab 1 TAB PO DAILY PRN for Shortness of Breath for 30 Days, #30 TAB 1 Refill Continued Medications: Ascorbic Acid (Vitamin C) 500 Mg Tab 500 MG PO QAM Cholecalciferol (Vitamin D) 2,000 Unit Cap 2000 UNIT PO QAM Docusate Sodium (Colace) 100 Mg Cap 100 MG PO DAILY PRN for Constipation for 15 Days, #15 CAP Metformin Hcl (Glucophage) 500 Mg Tab 500 MG PO QAM, TAB Multiple Vitamin (Multi Vitamin Daily) 1 Tab Tab 1 TAB PO QAM Polyethylene Glycol 3350 (Miralax) 1 Pow Pow 17 GM PO DAILY PRN for Constipation Sertraline Hcl (Zoloft) 25 Mg Tab 25 MG PO DAILY, TAB Simvastatin (Zocor) 10 Mg Tab 10 MG PO QAM, TAB Discontinued Medications: Metoprolol Tartrate (Lopressor) 25 Mg Tab 50 MG PO DAILY for 30 Days, #60 TAB Admission Information HPI (per Admitting provider): 86 year old female who presents to the ER with shortness of breath and leg swelling. Patient reports her symptoms have been going on for the past two days. She notes shortness of breath with minimal exertion. This morning she noticed increased swelling to her BLLE, mostly around the ankles. Patient denies orthopnea. She does not weight herself on a daily basis. She denies chest pain, lightheadedness, dizziness, diaphoresis, and syncopal events. No cough or sputum production. No abdominal pain, nausea, vomiting, or diarrhea. She denies fever and chills. No urinary symptoms. In the ER, patient's CXR is consistent with CHF. She was given Lasix 40mg IV and has been diuresising well. Trop is mildly elevated at 0.086. EKG does not show any acute ST changes. During my exam, patient was walking back from the bathroom and was very short of breath. HR was noted to be in the 130s-140s, suspicious of atrial fibrillation, which tele strips confirmed. EKG was obtained and patient then converted to NSR with PACs. Oxygen was applied however patient was never hypoxic. Once patient rested in bed, her symptoms started to improve. Physical Exam (per Admitting): General Appearance: + pertinent finding (initially, patient was resting in bed in no acute distress; however when walking back from the bathroom, patient had significant shortness of breath, once patient returned to bed, this improved ) Head: normocephalic Eyes: normal inspection ENT: hearing grossly normal Neck: supple, no JVD Respiratory/Chest: + respiratory distress (while walking back from bathroom , improved with rest), + decreased breath sounds, + crackles (BL bases) Cardiovascular: regular rate, rhythm, + systolic murmur, + pertinent finding (+1-2 edema BLLE, more pronounced around the ankles) Abdomen/GI: normal bowel sounds, non tender, soft Extremities/Musculoskelatal: normal inspection, no calf tenderness Neurologic/Psych: no motor/sensory deficits, alert, normal mood/affect ( anxious at times), oriented x 3 Skin: normal color, warm/dry Hospital Course This is an 86 year old female with PMH of severe aortic stenosis, HTN, HLD, DM2 presented with acute shortness of breath, dyspnea on exertion, and lower extremity edema Asymptomatic Sinus Bradycardia, resolved 01/18 will d/c home today hold metoprolol and amiodarone on discharge 01/17 HRs improved d/c amiodarone/metoprolol 01/16 will monitor in tele off of amiodarone and metoprolol again HRs improving to the mid to upper 50's 01/15 secondary to metoprolol and amiodarone use? held both for now rhythm strip shows what looks like a 2:1 AV block EKG shows marked sinus bradycardia patient is asymptomatic and has no symptoms noted today will discuss with cardiology Acute Kidney Injury 01/18 creat down to 1.4 today no other 01/17 creat of 2.3 appreciate nephro input will give some IVFs today, 80mL/hr for 4-5 hours recheck PRP in afternoon, if improving creat, can d/c home, if not, will hold off until tomorrow 01/16 creat has jumped to 2.4 again, this is likely related to over-diuresis I'll add gentle hydration, at 80mL/hr - monitor for overload as she has severe 3/13 creat is 1.3 today held IV Lasix Acute Heart Failure with Preserved Ejection Fraction in the setting of Severe Valvular Disease 01/18 will d/c home with Lasix 20mg PRN 01/15 held IV Lasix will d/c with PO 20mg Lasix monitor electrolytes 01/14 presented with dyspnea with exertion and edema in both legs received IV Lasix on admission symptoms improving today last echo showed a normal EF with severe , severe MR updated echo pending I's/O's, daily weights, low Na+ diet continue low dose diuretic for now Episode of A. Fib 01/15 was started on amiodarone held b-cassie and amio currently due to sinus leslie 01/14 currently on b-cassie was NSR during exam hold off on anticoagulation cardiology input would be appreciated HTN BP controlled continue home medications DM2 Last a1c = 4.9% stop all medications check BSGs and adjust accordingly HLD continue statin CKD stage 3 stable, monitor with diuretic use DVT ppx subq heparin FULL CODE Total time spent on discharge = 40 minutes This includes examination of the patient, discharge planning, medication reconciliation, and communication with other providers. Discharge Instructions Please follow-up with Dr. Geiger on January 22 @ 1:50PM * Please stop taking metoprolol for now - you will see cardiology as outpatient and they will discuss restarting this * You will be prescribed Lasix - only take this on an as needed basis - if you feel short of breath or lower extremity swelling increases
[2017-01-18 10:15] VITALS: BP 145/76; PULSE 70; TEMP 36.8; O2SAT 91
== END 2017-01-18 13:30 | disposition home or self-care (01) | DRG 291 ==
LOC: ENRESERVDT → ENRESERVTM → C.EDB 09:19 → C.MED 12:01
PROVIDERS: ADMIT Hospitalist; ATTEND Family Medicine
DX: I13.0 Hypertensive heart and chronic kidney disease with heart failure and stage 1 through stage 4 chronic kidney disease, or unspecified chronic kidney disease (principal); I50.31 Acute diastolic (congestive) heart failure; N17.9 Acute kidney failure, unspecified; I08.3 Combined rheumatic disorders of mitral, aortic and tricuspid valves; I27.2 Other secondary pulmonary hypertension; F32.9 Major depressive disorder, single episode, unspecified; E78.5 Hyperlipidemia, unspecified; E11.22 Type 2 diabetes mellitus with diabetic chronic kidney disease; N18.3 Chronic kidney disease, stage 3 (moderate); Z98.49 Cataract extraction status, unspecified eye; Z96.1 Presence of intraocular lens; Z79.84 Long term (current) use of oral hypoglycemic drugs; Z79.899 Other long term (current) drug therapy; I48.0 Paroxysmal atrial fibrillation; Z80.9 Family history of malignant neoplasm, unspecified; Z83.3 Family history of diabetes mellitus; Z82.49 Family history of ischemic heart disease and other diseases of the circulatory system; Z83.79 Family history of other diseases of the digestive system; F41.9 Anxiety disorder, unspecified

== ENCOUNTER → 2017-05-29 | Outpatient (CLI) | payer OTHER ==
[~2017-05-29] MED LIST changes: -CALCTAB5; +CHOL200010 PO; -ERGO500037 PO; -ESCI1TAB6 PO; +FURO20TA PO; -LPR25 PO; +SERT1TAB72 PO; +SIMV10TA2 PO; -SIMVASTATIN PO
[2017-05-29 08:36] LABS: BLOOD UREA NITROGEN 28 mg/dl (7-18); BUN/CREATININE RATIO 28.7 (10-20); CALCIUM 8.5 mg/dl (8.5-10.1); CARBON DIOXIDE 26 mmol/L (21-32); CHLORIDE 107 mmol/L (98-107); CREATININE 0.99 mg/dl (0.60-1.20); GLUCOSE 103 mg/dl (70-99); POTASSIUM 4.2 mmol/L (3.5-5.1); SODIUM 140 mmol/L (136-145)
== END | disposition home or self-care (01) ==
LOC: C.LABWYN 07:47
PROVIDERS: ATTEND Internal Medicine
DX: R60.9 Edema, unspecified (principal)

== ENCOUNTER → 2017-07-12 | Outpatient (CLI) | payer OTHER ==
[2017-07-12 08:23] LABS: BLOOD UREA NITROGEN 27 mg/dl (7-18); BUN/CREATININE RATIO 28.3 (10-20); CALCIUM 8.9 mg/dl (8.5-10.1); CARBON DIOXIDE 29 mmol/L (21-32); CHLORIDE 103 mmol/L (98-107); CREATININE 0.95 mg/dl (0.60-1.20); GLUCOSE 93 mg/dl (70-99); POTASSIUM 4.2 mmol/L (3.5-5.1); SODIUM 138 mmol/L (136-145)
== END | disposition home or self-care (01) ==
LOC: C.LABWYN 07:57
PROVIDERS: ATTEND Physician Assistant
DX: N28.9 Disorder of kidney and ureter, unspecified (principal)

== ENCOUNTER → 2017-07-17 | Outpatient (CLI) | payer OTHER ==
[2017-07-17 09:03] LABS: HEMATOCRIT 35.8 % (37-47); MEAN CELL VOLUME 87.7 fL (80-100); MEAN CORPUSCULAR HEMOGLOBIN 27.9 pg (25-34); MEAN CORPUSCULAR HGB CONC 31.8 g/dl (32-36); PLATELET COUNT 150 K/uL (130-400); RED BLOOD COUNT 4.08 M/uL (4.2-5.4); WHITE BLOOD COUNT 4.14 K/uL (4.8-10.8)
[2017-07-17 09:15] LABS: CHOLESTEROL/HDL RATIO 2.1
[2017-07-17 09:27] LABS: ESTIMATED AVERAGE GLUCOSE 111 mg/dl; HA1C FLAG Normal (Normal)
== END | disposition home or self-care (01) ==
LOC: C.LABWYN 08:39
PROVIDERS: ATTEND Internal Medicine
DX: D64.9 Anemia, unspecified (principal); M81.0 Age-related osteoporosis without current pathological fracture; E11.9 Type 2 diabetes mellitus without complications; E78.5 Hyperlipidemia, unspecified

== ENCOUNTER → 2017-08-02 | Outpatient (CLI) | payer OTHER ==
[2017-08-02 09:53] LABS: BLOOD UREA NITROGEN 16 mg/dl (7-18); BUN/CREATININE RATIO 17.6 (10-20); CALCIUM 8.5 mg/dl (8.5-10.1); CARBON DIOXIDE 26 mmol/L (21-32); CHLORIDE 106 mmol/L (98-107); CREATININE 0.89 mg/dl (0.60-1.20); GLUCOSE 90 mg/dl (70-99); POTASSIUM 3.9 mmol/L (3.5-5.1); SODIUM 140 mmol/L (136-145)
--- NOTE | 2017-08-06 14:56 | CODING QUERY NO DIAGNOSIS ---
: 1930 TREATMENT RENDERED WITHOUT A DIAGNOSIS To promote full compliance with coding requirements relating to patient care, physician participation is requested in all cases of waste cotton cleaner uncertainty. Please assist us with providing a diagnosis/symptom for the test(s) below: A diagnosis/symptom was not documented on your Order. A valid diagnosis/symptom is required to bill all insurances. Please remember that we are unable to code a diagnosis of rule out, probable, possible, questionable, or suspected. Tests that require a diagnosis: DOS: 08/02/2017 * PARTIAL RENAL PROFILE DIAGNOSIS: Provider Signature: Date: Thank you Mary Silveira [facility] Information Management Once completed, please kindly fax back to [phone] For questions please call [phone]
== END | disposition home or self-care (01) ==
LOC: C.LABWYN 08:32
PROVIDERS: ATTEND Internal Medicine
DX: I50.9 Heart failure, unspecified (principal)

== ENCOUNTER → 2017-12-25 | Outpatient (CLI) | payer OTHER ==
[2017-12-25 08:35] LABS: BLOOD UREA NITROGEN 25 mg/dl (7-18); CALCIUM 8.7 mg/dl (8.5-10.1); CARBON DIOXIDE 28 mmol/L (21-32); CREATININE 1.13 mg/dl (0.60-1.20); GLUCOSE 115 mg/dl (70-99); SODIUM 137 mmol/L (136-145)
--- NOTE | 2017-12-31 14:55 | CODING QUERY NO DIAGNOSIS ---
: 1930 TREATMENT RENDERED WITHOUT A DIAGNOSIS To promote full compliance with coding requirements relating to patient care, physician participation is requested in all cases of algorithm design engineer uncertainty. Please assist us with providing a diagnosis/symptom for the test(s) below: A diagnosis/symptom was not documented on your Order. A valid diagnosis/symptom is required to bill all insurances. Please remember that we are unable to code a diagnosis of rule out, probable, possible, questionable, or suspected. Tests that require a diagnosis: DOS: 12/25/17 BASIC METABOLIC PROFILE DIAGNOSIS: Provider Signature: Date: Thank you Mela Lowe [facility] Health Information Management Once completed, please kindly fax back to [phone] For questions please call [phone]
== END | disposition home or self-care (01) ==
LOC: C.LABWYN 08:16
PROVIDERS: ATTEND Internal Medicine
DX: I10 Essential (primary) hypertension (principal)

== ENCOUNTER → 2018-01-03 | Outpatient (CLI) | payer OTHER ==
[2018-01-03 08:03] LABS: BLOOD UREA NITROGEN 28 mg/dl (7-18); CALCIUM 8.6 mg/dl (8.5-10.1); CARBON DIOXIDE 27 mmol/L (21-32); CREATININE 1.03 mg/dl (0.60-1.20); GLUCOSE 105 mg/dl (70-99); POTASSIUM 3.9 mmol/L (3.5-5.1); SODIUM 137 mmol/L (136-145)
== END ==
LOC: C.LABWYN 07:46
PROVIDERS: ATTEND Nurse Practitioner Adult Health
DX: I50.9 Heart failure, unspecified (principal)

== ENCOUNTER 2018-01-14 17:14 | Emergency (ER) | payer OTHER ==
[~2018-01-14] VITALS: Ht 157.5 cm; Wt 62.9 kg
[2018-01-14 17:26] VITALS: TEMP 36.7; Ht 157.5 cm; Wt 62.9 kg
[2018-01-14 19:08] LABS: BASO ABS # 0.06 K/uL (0-0.2); EOS ABS # 0.18 K/uL (0-0.5); HEMATOCRIT 36.5 % (37-47); HEMOGLOBIN 11.4 g/dL (12.0-16.0); IG# 0.01 K/uL (0.00-0.02); LYMPH ABS # 1.45 K/uL (1.2-3.4); MEAN CORPUSCULAR HEMOGLOBIN 28.4 pg (25-34); MEAN CORPUSCULAR HGB CONC 31.2 g/dl (32-36); MEAN PLATELET VOLUME 11.9 fL (7.4-10.4); MONO % 9.3 %; MONO ABS # 0.56 K/uL (0.11-0.59); NEUT % 62.5 %; NEUT ABS # 3.78 K/uL (1.4-6.5); PLATELET COUNT 150 K/uL (130-400); RED CELL DISTRIBUTION WIDTH CV 16.6 % (11.5-14.5); RED CELL DISTRIBUTION WIDTH SD 54.9 fL (36.4-46.3); WHITE BLOOD COUNT 6.04 K/uL (4.8-10.8)
--- NOTE | 2018-01-14 19:30 | DIAGNOSTIC IMAGING REPORT ---
CHEST ONE VIEW PORTABLE HISTORY: Atypical CHEST PAIN COMPARISON: Chest 01/03/2017. FINDINGS: No pneumothorax. The heart remains mildly enlarged. Mild pulmonary vascular congestion without overt edema. A few linear densities within the left mid to lower lung zone suggesting scarring or atelectasis. Small bilateral pleural effusions are improved. Mitral annulus calcifications are again noted. IMPRESSION: Cardiomegaly with mild pulmonary vascular congestion and small bilateral pleural effusions. Electronically signed by: Calos Hernandez M.D. 01/14/2018 7:29 PM Dictated Date/Time: 01/14/2018 7:27 PM
[2018-01-14 19:39] LABS: CREATININE 1.3 mg/dl (0.60-1.20); POTASSIUM 4.1 mmol/L (3.5-5.1)
[2018-01-14 19:40] LABS: ALBUMIN 3.2 gm/dl (3.4-5.0); CALCIUM 8.7 mg/dl (8.5-10.1); TOTAL PROTEIN 7.7 gm/dl (6.4-8.2)
--- NOTE | 2018-01-14 19:53 | EMERGENCY ROOM VISIT NOTE ---
History Report prepared by Sabrina: Jigar Escamilla Under the Supervision of: Dr. Luther Blanco M.D. First contact with patient: 18:26 Chief Complaint: SHORTNESS OF BREATH Stated Complaint: SOB, PITTING EDEMA IN BOTH FEET Nursing Triage Summary: pt daughter reports lasix increased 2 weeks ago to 60mg daily however pt cont to have increased edema and wt gain of 10 lbs. in the last 2 weeks . pt reports increased exertional sob . denies cp History of Present Illness The patient is an 87 year old female who presents to the Emergency Room with complaints of persistent fluid accumulation/weight gain that she has been experiencing for the past 1.5 weeks. The patient has a history of CHF with secondary lower extremity edema. She recently had her Lasix dosage increased from 40mg - 60mg daily. With this increase she has still gained over 10 pounds in the past month, and has been experiencing increased shortness of breath. 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 The patient's daughter at bedside notes that her legs have been swollen more than usual as well. The patient follows with Dr. Perez - Cardiology who suggested that the patient may need an IV dosage of Lasix. The patient had a Chest X-ray performed a two weeks ago which showed some fluid in her lungs. The patient denies any associated chest pain, abdominal pain or vomiting. Source of History: patient, family Onset: 1.5 weeks Position: leg (bilateral) Quality: other (swelling) Associated Symptoms: + SOB, No chest pain, No vomiting Review of Systems See HPI for pertinent positives & negatives. A total of 10 systems reviewed and were otherwise negative. Past Medical & Surgical Medical Problems: (1) Aortic stenosis (2) Aortic stenosis (3) Depression (4) Diabetes mellitus type II, controlled (5) Dyslipidemia (6) HTN (hypertension) Surgical Problems: (1) H/O cataract removal with insertion of prosthetic lens (2) H/O inguinal hernia repair Old medical records were reviewed. Nurse's notes were reviewed and I agree with. Family History Cancer Diabetes mellitus Gallbladder disease Heart disease Hypertension Social History Smoking Status: Never Smoker Alcohol Use: none Drug Use: none Housing Status: lives with family Occupation Status: retired Current/Historical Medications Scheduled Aspirin (Aspirin Ec), 81 MG PO DAILY Docusate Sodium (Colace), 100 MG PO DAILY Fish Oil ([place]-3), 1 CAP PO DAILY Furosemide (Lasix), 20 MG PO DAILY Furosemide (Lasix), 40 MG PO DAILY Metformin Hcl (Glucophage), 500 MG PO QAM Multiple Vitamin (Multi Vitamin Daily), 1 TAB PO QAM Potassium Chloride (Micro-K Ext Rel), 10 MEQ PO DAILY Simvastatin (Zocor), 10 MG PO QAM Scheduled PRN Acetaminophen (Tylenol), 650 MG PO Q6 PRN for Pain Dextromethorphan-Guaifenesin (Mucinex Dm), 1 TAB PO Q12 PRN for CONGESTION Guaifenesin (Siltussin Sa), 5 ML PO Q6 PRN for Cough Polyethylene Glycol 3350 (Miralax), 17 GM PO DAILY PRN for Constipation Miscellaneous Medications Calcium Ascorbate (Vitamin C), 500 MG PO Allergies Coded Allergies: No Known Allergies (Unverified , 01/13/17) Physical Exam Vital Signs Date Time Temp Pulse Resp B/P (MAP) Pulse Ox O2 Delivery O2 Flow Rate FiO2 01/14/18 20:40 92 22 132/71 92 01/14/18 20:19 92 22 132/71 92 Room Air 01/14/18 19:14 82 01/14/18 18:32 88 18 153/60 98 Room Air 01/14/18 17:26 36.7 83 20 127/62 94 Room Air Physical Exam General: Non-ill appearing older male, heard of hearing but answers appropriately, in no acute distress. HEENT: Normal cephalic atraumatic. Pupils are equal round and reactive to light. Extraocular movements are intact. Oropharynx is pink with moist mucous membranes. No swelling of the mouth lips or tongue. Neck: Supple with a midline trachea. No meningeal signs or stiffness, no JVD or bruits. No Stridor. Chest: Crackles at the bases bilaterally, No wheezes or rhonchi. No increased work of breathing. Heart: regular rate and rhythm. Abdomen: Soft nontender, nondistended without rebound guarding or rigidity. Extremities: No cyanosis clubbing with 1+ lower extremity edema, No calf tenderness or assymetry Spine/Back. Non tender to palpation. No CVA tenderness Skin: Good turgor without rashes. Neurologic exam: Cranial nerves two through 12 are intact. Motor and sensation are intact and symmetrical throughout. Medical Decision & Procedures ER Provider Diagnostic Interpretation: X-ray results as stated below per interpretation by me: Chest X-Ray: Shows cardiomegaly, no congestive changes, no infiltrates. Radiology results as stated below per my review and radiologist interpretation: CHEST ONE VIEW PORTABLE HISTORY: Atypical CHEST PAIN COMPARISON: Chest 01/03/2017. FINDINGS: No pneumothorax. The heart remains mildly enlarged. Mild pulmonary vascular congestion without overt edema. A few linear densities within the left mid to lower lung zone suggesting scarring or atelectasis. Small bilateral pleural effusions are improved. Mitral annulus calcifications are again noted. IMPRESSION: Cardiomegaly with mild pulmonary vascular congestion and small bilateral pleural effusions. Electronically signed by: Calos Hernandez M.D. 01/14/2018 7:29 PM Dictated Date/Time: 01/14/2018 7:27 PM Laboratory Results 01/14/18 18:53 Red Blood Count 4.01, Mean Corpuscular Volume 91.0, Mean Corpuscular Hemoglobin 28.4, Mean Corpuscular Hemoglobin Concent 31.2, Mean Platelet Volume 11.9, Neutrophils (%) (Auto) 62.5, Lymphocytes (%) (Auto) 24.0, Monocytes (%) (Auto) 9.3, Eosinophils (%) (Auto) 3.0, Basophils (%) (Auto) 1.0, Neutrophils # (Auto) 3.78, Lymphocytes # (Auto) 1.45, Monocytes # (Auto) 0.56, Eosinophils # (Auto) 0.18, Basophils # (Auto) 0.06 01/14/18 18:53 Test 01/14/18 18:51 01/14/18 18:53 Bedside Troponin I 0.040 ng/ml (0-0.045) White Blood Count 6.04 K/uL (4.8-10.8) Red Blood Count 4.01 M/uL (4.2-5.4) Hemoglobin 11.4 g/dL (12.0-16.0) Hematocrit 36.5 % (37-47) Mean Corpuscular Volume 91.0 fL (80-100) Mean Corpuscular Hemoglobin 28.4 pg (25-34) Mean Corpuscular Hemoglobin Concent 31.2 g/dl (32-36) Platelet Count 150 K/uL (130-400) Mean Platelet Volume 11.9 fL (7.4-10.4) Neutrophils (%) (Auto) 62.5 % Lymphocytes (%) (Auto) 24.0 % Monocytes (%) (Auto) 9.3 % Eosinophils (%) (Auto) 3.0 % Basophils (%) (Auto) 1.0 % Neutrophils # (Auto) 3.78 K/uL (1.4-6.5) Lymphocytes # (Auto) 1.45 K/uL (1.2-3.4) Monocytes # (Auto) 0.56 K/uL (0.11-0.59) Eosinophils # (Auto) 0.18 K/uL (0-0.5) Basophils # (Auto) 0.06 K/uL (0-0.2) RDW Standard Deviation 54.9 fL (36.4-46.3) RDW Coefficient of Variation 16.6 % (11.5-14.5) Immature Granulocyte % (Auto) 0.2 % Immature Granulocyte # (Auto) 0.01 K/uL (0.00-0.02) Anion Gap 11.0 mmol/L (3-11) Est Creatinine Clear Calc Drug Dose 25.6 ml/min Estimated GFR () 42.1 Estimated GFR (Non- 36.3 BUN/Creatinine Ratio 18.5 (10-20) Calcium Level 8.7 mg/dl (8.5-10.1) Total Bilirubin 1.2 mg/dl (0.2-1) Direct Bilirubin 0.6 mg/dl (0-0.2) Aspartate Amino Transf (AST/SGOT) 29 U/L (15-37) Alanine Aminotransferase (ALT/SGPT) 15 U/L (12-78) Alkaline Phosphatase 95 U/L (45-117) Total Creatine Kinase 83 U/L (26-192) Creatine Kinase MB 2.4 ng/ml (0.5-3.6) Creatine Kinase MB Ratio 2.9 (0-3.0) Pro-B-Type Natriuretic Peptide 5546 pg/ml (0-1800) Total Protein 7.7 gm/dl (6.4-8.2) Albumin 3.2 gm/dl (3.4-5.0) Lipase 132 U/L (73-393) Laboratory studies as stated above per my review. Medications Administered Medications (Trade) Dose Ordered Sig/Osman Route Start Time Stop Time Status Last Admin Dose Admin Furosemide (Lasix Inj) 40 mg NOW STAT IV 01/14/18 20:14 01/14/18 20:15 DC 01/14/18 20:19 40 MG ECG Per My Interpretation Indication: SOB/dyspnea Rate (beats per minute): 80 Rhythm: normal sinus Findings: nonspecific-ST abn, other (Mildly prolonged QT, LVH, ) Comparison ECG Date: 01/15/2017 Change: no significant change ED Course 1827: Past medical records reviewed. The patient was evaluated in room B9, and a complete history and physical examination were performed. 2018: Upon reevaluation, the patient is resting in bed. I discussed the results and treatment plan with her. She verbalized agreement of the treatment plan. The patient was discharged home. Medical Decision Differential Diagnosis includes; congestive heart failure, dehydration, pneumonia, electrolyte or metabolic abnormality. This patient comes in as described above. She was placed in room B9 . she has been having outpatient treatment for CHF and was feeling that she is still gaining weight and is short of breath. She denies any complaints and during her entire stay, while she is here she keeps asking to go home. He is not hypoxemic. Her lungs are primarily clear with an occasional crackle in the base. She does have some 1+ lower extremity edema. She has had no chest pain or shortness of breath. EKG does not show any definite acute ischemic changes. She has no white count or fever to suggest infection. Electrolytes have been obtained as well. She has mild renal insufficiency. She was given additional Lasix 40 mg IV. I suggested and talk to the daughter and the patient like that we observe her in the hospital overnight she adamantly declines and refuses. She was discharged. She was walking from the room to the lobby and got very short of breath and was brought back in the room. I reassessed her again her O2 sat was 92 but came up into the high 90s and she did not appear in any distress when she sat down. I again talked to her about admission just for tonight and she adamantly declines. I talked to the daughter as well we could could not convince her to stay. she does have the capacity at this point to refuse. Her set up at [facility] would be a much smaller walk and they are going to have out of bed with assistance only. the daughters can stay and if she gets worse she can call the ambulance. She has been given Lasix IV and hopefully with some extra diuresis will feel better and again despite multiple efforts to convince her to stay she adamantly will not consent. She was discharged and I recommend she follow-up with her doctor tomorrow for recheck and be very careful getting up and down and return to the ER if she has worsening symptoms, chest pain, shortness of breath, any new problems or concerns. Medication Reconcilliation Current Medication List: was personally reviewed by me Blood Pressure Screening Patient's blood pressure: Elevated blood pressure Impression Primary Impression: Congestive heart failure Additional Impression: MARTIN (dyspnea on exertion) Scribe Attestation The scribe's documentation has been prepared under my direction and personally reviewed by me in its entirety. I confirm that the note above accurately reflects all work, treatment, procedures, and medical decision making performed by me. Departure Information Dispostion Home / Self-Care Referrals [facility] VIELKA EID (PCP) Forms HOME CARE DOCUMENTATION FORM, IMPORTANT VISIT INFORMATION Patient Instructions [facility] Additional Instructions Rest. Continue her Lasix. 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 Be careful getting up and down and have assistance Problem Qualifiers
[2018-01-14] MEDS ORDERED: POTA10CA28 PO (19:55)
[2018-01-14] MEDS ORDERED: DEXT30TA7 PO (19:55)
[2018-01-14] MEDS ORDERED: ASPI81TA28 PO (19:55)
[2018-01-14] MEDS ORDERED: FRS/40 PO (19:55)
[2018-01-14] MEDS ORDERED: ACET-1311 PO (19:55)
[2018-01-14] MEDS ORDERED: OMEG10007 PO (19:55)
[2018-01-14] MEDS ORDERED: GUAI100S75 PO (19:55)
[2018-01-14] MEDS ORDERED: FURO-85 PO (19:55)
[2018-01-14] MEDS ORDERED: CALC500T72 PO (19:55)
[2018-01-14 20:09] LABS: CKMB 2.4 ng/ml (0.5-3.6)
[2018-01-14] MEDS ORDERED: FUROSEMIDE 40 MG/4 ML VIAL IV STA (20:14)
[2018-01-14 20:40] VITALS: BP 132/71; PULSE 92; O2SAT 92
== END 2018-01-14 20:41 | disposition home or self-care (01) ==
LOC: C.EDB 17:15
DX: I50.9 Heart failure, unspecified (principal); I11.0 Hypertensive heart disease with heart failure; N28.9 Disorder of kidney and ureter, unspecified; E78.5 Hyperlipidemia, unspecified; E11.9 Type 2 diabetes mellitus without complications; F32.9 Major depressive disorder, single episode, unspecified; I35.0 Nonrheumatic aortic (valve) stenosis; Z96.1 Presence of intraocular lens; Z87.19 Personal history of other diseases of the digestive system; Z79.82 Long term (current) use of aspirin; Z79.84 Long term (current) use of oral hypoglycemic drugs; Z80.9 Family history of malignant neoplasm, unspecified; Z83.3 Family history of diabetes mellitus; Z83.79 Family history of other diseases of the digestive system; Z82.49 Family history of ischemic heart disease and other diseases of the circulatory system

== ENCOUNTER → 2018-01-29 | Outpatient (CLI) | payer OTHER ==
[~2018-01-29] MED LIST changes: +ACET-1311 PO; -ASCA500 PO; +ASPI81TA28 PO; +CALC500T72 PO; -CHOL200010 PO; +DEXT30TA7 PO; +FRS/40 PO; +FURO-85 PO; -FURO20TA PO; +GUAI100S75 PO; +OMEG10007 PO; +POTA10CA28 PO; -SERT1TAB72 PO
[2018-01-29 08:36] LABS: BLOOD UREA NITROGEN 25 mg/dl (7-18); CALCIUM 8.4 mg/dl (8.5-10.1); CARBON DIOXIDE 26 mmol/L (21-32); CREATININE 1.26 mg/dl (0.60-1.20); GLUCOSE 113 mg/dl (70-99); POTASSIUM 3.7 mmol/L (3.5-5.1); SODIUM 136 mmol/L (136-145)
== END | disposition home or self-care (01) ==
LOC: C.LABWYN 08:15
PROVIDERS: ATTEND Physician Assistant
DX: I50.32 Chronic diastolic (congestive) heart failure (principal); I38 Endocarditis, valve unspecified